=== PATIENT | female | born 1945 | race Caucasian/White ===

== ENCOUNTER 2017-03-30 18:07 | Inpatient (IN) | payer MEDICARE, SELFPAY ==
[2017-03-30 18:14] VITALS: BMI 22.9
[2017-03-30] MEDS ORDERED: Guaifenesin DM 100-10/5 ML UDCUP PO PRN (19:27)
[2017-03-30] MEDS ORDERED: Loperamide HCl 2 MG CAP PO PRN (19:27)
[2017-03-30] MEDS ORDERED: Mometasone/Formoterol 60 PUFF AER INH PRN (20:11)
[2017-03-30] MEDS ORDERED: PROVENTIL INHALER 6.7 G (200 INHALATIONS) INH PRN (20:11)
[2017-03-30] MEDS ORDERED: [UNRECOGNIZED DRUG - OTHER] IV SCH (20:15)
[2017-03-30] MEDS ORDERED: Non-Formulary Item 1 EACH (Vancomycin/0.9 % Sod Chloride [Vancomycin 1 G/100ml-0.9% Nacl] IV SCH (20:15)
[2017-03-30] MEDS ORDERED: SODIUM CHLORIDE 0.9% IV SCH (20:15)
[2017-03-30] MEDS ORDERED: HYDROmorphone 2 MG TAB PO SCH (21:00)
[2017-03-30] MEDS: Spironolactone 25 MG TAB PO SCH (21:08)
[2017-03-30] MEDS: Glimepiride 2 MG TAB PO SCH (21:09)
[2017-03-30] MEDS: Metoprolol Tartrate 50 MG TAB PO SCH (21:09)
[2017-03-30] MEDS: Fish Oil 1,000 MG CAP PO SCH (21:11)
[2017-03-30] MEDS: Sodium Chloride 0.9% 1,000 ML IV SCH (21:24)
[2017-03-31 05:44] LABS: #Eosinphils 0.1 thou/uL (0.0-0.7); #Monocytes 0.4 thou/uL (0.11-0.59); #Neutrophils 3.6 thou/uL (1.40-6.50); %Basophils 0.7 % (0.0-1.0); %Lymphocytes 32.3 % (21.0-51.0); Hemoglobin 9.8 g/dL (12.0-16.0); Mean Corpuscular HGB CONC 30.6 g/dL (32.0-36.0); Mean Corpuscular Hemoglobin 23.7 pg (27.0-31.0); Mean Corpuscular Volume 77.4 fl (81.0-99.0); Mean Platelet Volume 10.5 fL (7.4-10.4); Platelet Count 182 thou/uL (130-400); RBC Distribution Width 15.9 % (11.5-14.5); Red Blood Cell (RBC) Count 4.14 mill/uL (4.20-5.40); White Blood Cell (WBC) Count 6.2 thou/uL (4.8-10.8)
[2017-03-31 05:45] LABS: Anisocytosis MODERATE=16-30 cells (100X) (0-5/hpf); Elliptocytes SLIGHT = 2-5 cells (100X) (0-1/hpf); Hypochromia SLIGHT = 6-15 cells (100X) (0-5/hpf); MDiff Complete? YES; Ovalocytes MODERATE= 6-15 cells (100X) (0-1/hpf); PLT Morphology Comment Appears Adequate; Target Cells SLIGHT = 2-5 cells (100X) (0-1/hpf)
[2017-03-31 05:50] LABS: ALT (SGPT) 72 U/L (8-55); AST (SGOT) 125 U/L (5-34); Albumin 3.3 g/dL (3.4-4.8); Alkaline Phosphatase 265 U/L (40-150); Anion Gap 15 mmol/L (10-20); BUN (Urea Nitrogen) 18 mg/dL (9.8-20.1); Bilirubin, Total 0.4 mg/dL (0.2-1.2); Calc. Creatinine Clearance 45 mL/min (70-130); Calcium 8.8 mg/dL (7.8-10.44); Carbon Dioxide 27 mmol/L (23-31); Chloride 99 mmol/L (98-107); Estimated GFR-MDRD 56; Globulin 2.7 g/dL (2.4-3.5); Glucose 94 mg/dL (83-110); Sodium 137 mmol/L (136-145)
[2017-03-31] MEDS: HYDROmorphone 2 MG TAB PO PRN ×5 (06:37→21:00)
[2017-03-31] MEDS: Sodium Chloride 0.9% 1,000 ML IV SCH ×3 (06:37→17:16)
[2017-03-31 08:16] LABS: Bilirubin Negative (Negative); Blood, Urine Negative (Negative); Clarity Clear (Clear); Glucose, Urine (Dipstick) Negative (Negative); Leukocyte Trace (Negative); Nitrite Negative (Negative); Protein, Urine (Dipstick) Negative (Neg-Trace); Specific Gravity, Urine 1.015 (1.005-1.030); Urobilinogen 0.2 mg/dL (0.2-1.0); pH, Urine 5.5 (5.0-9.0)
[2017-03-31 08:28] LABS: RBC/HPF None Seen HPF (0-3)
[2017-03-31 08:29] LABS: Bacteria/HPF 1+ HPF (None Seen); Other Microscopic Description NO
[2017-03-31] MEDS ORDERED: Lisinopril 10 MG TAB PO SCH (09:00)
[2017-03-31] MEDS: Metoprolol Tartrate 50 MG TAB PO SCH ×3 (09:19→20:59)
[2017-03-31] MEDS: Fish Oil 1,000 MG CAP PO SCH ×3 (09:19→21:00)
[2017-03-31] MEDS: Furosemide 40 MG TAB PO SCH (09:19)
[2017-03-31] MEDS: Potassium Chloride 10 MEQ TAB PO SCH (09:20)
[2017-03-31] MEDS: Spironolactone 25 MG TAB PO SCH ×3 (09:20→21:00)
[2017-03-31] MEDS: Clopidogrel Bisulfate 75 MG TAB PO SCH (09:21)
[2017-03-31] MEDS: Glimepiride 2 MG TAB PO SCH ×2 (09:21→20:59)
[2017-03-31] MEDS: Ondansetron ODT 4 MG TAB PO PRN (17:14)
[2017-03-31] MEDS: Vancomycin HCl 1 GM in Sodium Chloride 0.9% 250 ML 250 ML IVPB SCH (17:15)
[2017-03-31] MEDS ORDERED: Dextrose 5% in Water 1,000 ML IV PRN (18:04)
[2017-03-31] MEDS ORDERED: HumaLOG 300 UNITS/3 ML VIAL SC PRN ×2 (18:04)
[2017-03-31] MEDS ORDERED: Dextrose 50% Abboject 50 ML SYRINGE IVP PRN (18:04)
[2017-04-01] MEDS: Sodium Chloride 0.9% 1,000 ML IV SCH ×4 (00:49→21:39)
[2017-04-01] MEDS: HYDROmorphone 2 MG TAB PO PRN ×3 (04:52→21:37)
[2017-04-01] MEDS: Spironolactone 25 MG TAB PO SCH ×3 (08:01→21:37)
[2017-04-01] MEDS: Fish Oil 1,000 MG CAP PO SCH ×3 (08:01→21:37)
[2017-04-01] MEDS: Glimepiride 2 MG TAB PO SCH ×2 (08:02→21:37)
[2017-04-01] MEDS: Metoprolol Tartrate 50 MG TAB PO SCH ×3 (08:02→21:37)
[2017-04-01] MEDS: Clopidogrel Bisulfate 75 MG TAB PO SCH (08:02)
[2017-04-01] MEDS: Furosemide 40 MG TAB PO SCH (08:02)
[2017-04-01] MEDS: Potassium Chloride 10 MEQ TAB PO SCH (08:02)
[2017-04-01] MEDS: Lisinopril 10 MG TAB PO SCH (08:02)
--- NOTE | 2017-04-01 08:06 | HP ---
DATE OF ADMISSION: 03/30/2017 DATE OF HISTORY AND PHYSICAL: 03/31/2017 HISTORY OF PRESENT ILLNESS: Ms. Benson is a very pleasant 71-year-old white female that unfortunately fell about 3 weeks ago. She had surgical reduction but unfortunately it became infected. She had s ignificant swelling to her leg and the surgical site had to be opened, irrigated, and all the hardwar e removed. The patient tolerated the procedure fairly well, but needs 4-6 weeks of IV vancomycin. Selena Underwood called me and transferred the patient to [facility] for continued IV antibiot ics and nonweightbearing status. PAST MEDICAL HISTORY: Reveals the patient has, 1. Congestive heart failure. 2. Diabetes type 2. 3. Hyperlipidemia. 4. Hypertension. 5. Osteomyelitis. 6. Prior history of malignant tumor of the breast. 7. Coronary arteriosclerosis. 8. Aortic valve stenosis. 9. Open wound to the lower ankle. PAST SURGICAL HISTORY: 1. Aortic valve repair in 2014. 2. Three orthopedic surgeries on the left lower extremity. 3. Two orthopedic surgeries on the right lower extremity. 4. Double mastectomy in 1989. 5. Cholecystectomy in 1959. 6. Right inguinal hernia repair. 7. Percutaneous transluminal balloon angioplasty with insertion of stents in the right coronary tristan ry in [address] Dominguez and Dr. Hanson. FAMILY HISTORY: Reveals the patient's mother had breast cancer. The patient's father had a stroke. The patient's father also had stomach cancer. SOCIAL HISTORY: Reveals the patient has smoked, but quit smoking in 1959. She only smoked 2 years. She denies any alcohol use. She also denies any illicit drug use. She presently lives in [facility] with her . CURRENT MEDICATIONS: Reveal the patient is presently on the followin. Acetaminophen 650 mg p.r.n. 2. Elwood 5 q.4h. p.r.n. 3. Xanax 0.5 q.6 h. p.r.n. anxiety and agitation. 4. Brovana 15 mcg neb q.a.m. 5. Ecotrin 81 mg. 6. Tessalon Perles 100 mg t.i.d. scheduled. 7. Budesonide 0.5 mg for neb at bedtime. 8. Vitamin D 1000 units daily. 9. Plavix 75 mg daily. 10. Diltiazem CD 100 mg daily. 11. Pepcid 20 mg daily. 12. Fluticasone nasal spray scheduled daily. 13. Robitussin-AC 5 mL q.4 h. p.r.n. cough. 14. Avapro 300 mg daily. 15. Levothyroxine 50 mcg daily. 16. Milk of Magnesia p.r.n. constipation. 17. Magnesium oxide 400 mg daily. 18. Zofran 4 mg IV q.6 h. p.r.n. nausea and vomiting. 19. Prednisone 5 mg each morning. 20. Zoloft 25 mg each morning. 21. Normal saline flush p.r.n. ALLERGIES: The patient is noted to be allergic to AMOXICILLIN, BACTRIM, TETRACYCLINE, TYLENOL, DARVO CET-N 100, CODEINE, DEMEROL, DARVON. REVIEW OF SYSTEMS: Revealed that the patient has 10-system reviewed, all negative. PHYSICAL EXAMINATION: GENERAL: This is a well-developed, well-nourished, slightly obese white female lying in bed in no ap parent distress at this time. HEENT: Reveals normocephalic, nontraumatic cranium. Pupils are equally round and reactive. Extraoc ular movements are intact. Nose and throat are somewhat moist and clear. NECK: Supple, without mass, nodes or bruits. The patient is noted be euthyroid. No jugular venous distention is noted. CHEST: Clear to auscultation. No rales, rhonchi or wheezes are heard. HEART: Reveals a regular rate and rhythm without murmurs, gallops or rubs. BACK: Without murmurs or gallops. The patient has a 2/6 systolic ejection murmur. ABDOMEN: Obese, soft, nontender, without organomegaly. Normal bowel sounds are heard in all 4 quadr ants. GENITOURINARY: Deferred. EXTREMITIES: Covered in a dressing, which I have not unwrapped. Patient has had pictures taken, I w ill review those. Patient has no significant rashes. NEUROLOGIC: The patient is oriented to person, place and time. The patient has cranial nerves II-XI I grossly intact. ASSESSMENT: 1. Osteomyelitis requiring vancomycin. 2. Open wound to the lower leg. 3. Diabetes type 2. 4. Hypertension. 5. Coronary artery disease. 6. Aortic valve stenosis. 7. Open wound of lower limb which has a vein traversing across which is a contraindication to the wo und VAC. 8. History of breast cancer in both breasts. PLAN: 1. We will continue the patient's antibiotic at this time. 2. Continue to encourage the patient to follow diabetic carbohydrate controlled diet. 3. Physical therapy and occupational therapy. 4. Stress ulcer prophylaxis. 5. Decubitus precautions. 6. Physical therapy and occupational therapy.
[2017-04-01] MEDS: Ondansetron ODT 4 MG TAB PO PRN (09:00)
--- NOTE | 2017-04-01 09:08 | PRG ---
DATE OF SERVICE: 04/01/2017 DATE OF ADMISSION: 03/30/2017 SUBJECTIVE: Ms. Benson is a very pleasant 71-year-old white female that unfortunately fell 3 weeks ag o. She had fractured ankle and had a surgical reduction. Unfortunately it became infected. Her leg began to swell and the surgical site had to be opened, irrigated, and all the hardware was removed. The patient tolerated that fairly well, but continues on 4-6 weeks of IV vancomycin. Dr. Underwood call me and we transferred the patient to [facility] for continued IV antibiotics and nonw eightbearing status. SUBJECTIVE: The patient states she is doing very well. She had a good breakfast and she is not havi ng a whole lot of pain. She is very happy here at this time. PHYSICAL EXAMINATION: VITAL SIGNS: This morning reveal blood pressure 111/49, pulse 60, respiration 16-17, O2 sat 97%-98%, T-max 98.6. GENERAL: This is a well-developed, well-nourished, slightly obese white female in no apparent distre ss at this time. HEENT: Reveals normocephalic and nontraumatic cranium. Pupils are equally round and reactive. Extr aocular movements are intact. Nose and throat are slightly dry, but clear. NECK: Supple, without masses, nodes or bruits. CHEST: Clear to auscultation. No rales, no rhonchi, no wheezes are heard. No cough is noted. HEART: Reveals a regular rate and rhythm without murmurs, gallops or rubs except for a 2/6 systolic ejection murmur. ABDOMEN: Obese, soft, nontender, without organomegaly. Normal bowel sounds are noted. No rebound o r guarding is noted. GENITOURINARY: Deferred. EXTREMITIES: Reveal that her ankle is completely wrapped and no drainage noted through the dressings . NEUROLOGIC: The patient is oriented to person, place, and time. IMPRESSION: 1. Osteomyelitis requiring vancomycin for 4-6 weeks. 2. Open wound to lower leg. 3. Diabetes type 2. 4. Hypertension. 5. Coronary artery disease. 6. Aortic valvular stenosis. 7. Open wound of the lower extremity. 8. History of breast cancer in both breasts. 9. Generalized weakness. PLAN: 1. Continue vancomycin, we are waiting on vancomycin trough. 2. Continue to follow the patient's sugars with Accu-Cheks a.c. and at bedtime. 3. Stress ulcer prophylaxis. 4. Decubitus precautions. 5. Deep venous thrombosis prophylaxis. 6. Physical therapy and occupational therapy.
[2017-04-01 16:32] LABS: Vancomycin, Trough 20.5 ug/mL
[2017-04-01] MEDS: Vancomycin HCl 1 GM in Sodium Chloride 0.9% 250 ML 250 ML IVPB SCH (17:27)
[2017-04-02] MEDS: Sodium Chloride 0.9% 1,000 ML IV SCH ×3 (02:38→15:53)
[2017-04-02] MEDS: Ondansetron ODT 4 MG TAB PO PRN ×3 (02:42→20:03)
[2017-04-02] MEDS: Furosemide 40 MG TAB PO SCH (08:48)
[2017-04-02] MEDS: Spironolactone 25 MG TAB PO SCH ×4 (08:48→21:46)
[2017-04-02] MEDS: Fish Oil 1,000 MG CAP PO SCH ×3 (08:48→21:45)
[2017-04-02] MEDS: Potassium Chloride 10 MEQ TAB PO SCH (08:48)
[2017-04-02] MEDS: Glimepiride 2 MG TAB PO SCH ×3 (08:48→21:45)
[2017-04-02] MEDS: Clopidogrel Bisulfate 75 MG TAB PO SCH (08:48)
[2017-04-02] MEDS: Metoprolol Tartrate 50 MG TAB PO SCH ×3 (08:49→21:45)
[2017-04-02] MEDS: Lisinopril 10 MG TAB PO SCH (08:49)
--- NOTE | 2017-04-02 10:38 | PRG ---
DATE OF SERVICE: 04/02/2017 SUBJECTIVE: Ms. Benson is a very pleasant 71-year-old white female that fell and had a fractured ankl e. She had a surgical reduction, but unfortunately became infected and began to swell. They had to reenter the surgical site and remove all the hardware. It was opened and irrigated. The patient was then transferred here for a good 4-6 weeks of IV vancomycin. The patient is a patient of Dr. Kj ashford nd he called me personally to get the patient transferred over. States he would like to see the cinthya ent in a couple weeks. She will continue on IV antibiotics and nonweightbearing status. SUBJECTIVE: The patient states she is doing well. She has no significant pain. She is happy to be here. PHYSICAL EXAMINATION: GENERAL: This is a well-developed, well-nourished, pleasant white female in no apparent distress at this time. VITAL SIGNS: Blood pressure is slightly low last night at 90/49, pulse 60-61, respirations 17-20, O2 sat 94%-98%. T-max 98.6. HEENT: Reveals normocephalic, nontraumatic cranium. Pupils are equal and reactive. Extraocular mov ements intact. Nose and throat are slightly dry. NECK: Supple, without masses, nodes or bruits. CHEST: Clear to auscultation. No rales, rhonchi or wheezes are heard. CARDIOVASCULAR: Reveals a regular rate and rhythm without murmurs, gallops or rubs. A 2/6 systolic ejection murmur is noted. ABDOMEN: Soft, nontender, without organomegaly, normal bowel sounds are noted. No rebound or guardi ng is noted. GENITOURINARY: Deferred. EXTREMITIES: Reveal no clubbing, cyanosis or edema. Left extremity reveals a wound VAC in place and working well. NEUROLOGIC: The patient is oriented to person, place, and time. IMPRESSION: 1. Osteomyelitis requiring 4-6 weeks of vancomycin. 2. Open wound to the left leg with wound VAC. 3. Diabetes type 2. 4. Hypertension. 5. Coronary artery disease. 6. Aortic valvular stenosis. 7. Abnormal liver enzymes. 8. Open wound of the lower extremities. 9. History of breast cancer in both breasts. 10. Generalized weakness. PLAN: 1. We will repeat her labs tomorrow, especially her liver enzymes. 2. Her diabetes is doing outstanding with sugars low 112, high of 137. 3. Vancomycin to be continued for 4-6 weeks and to be adjusted by Pharmacy. 4. Stress ulcer prophylaxis. 5. Decubitus precautions. 6. Deep venous thrombosis prophylaxis. 7. Physical therapy and occupational therapy.
[2017-04-02] MEDS: Vancomycin HCl 1 GM in Sodium Chloride 0.9% 250 ML 250 ML IVPB SCH (17:17)
[2017-04-02] MEDS ORDERED: Mag-Al Plus 1200 MG/1200 MG/120 MG/30 ML UDCUP PO PRN (20:24)
[2017-04-02] MEDS ORDERED: Sodium Chloride 0.9% 1,000 ML IV SCH (20:30)
[2017-04-02] MEDS ORDERED: Mag-Al Plus 1200 MG/1200 MG/120 MG/30 ML UDCUP PO SCH (20:30)
[2017-04-02] MEDS ORDERED: Pantoprazole 40 MG VIAL IVP SCH (20:30)
[2017-04-02] MEDS ORDERED: Sodium Chloride 0.9% 500 ML IV SCH (20:30)
[2017-04-02 21:17] LABS: CKMB 0.8 ng/mL (0-6.6); Troponin I 0.018 ng/mL (< 0.028)
[2017-04-03] MEDS: Sodium Chloride 0.9% 1,000 ML IV SCH ×5 (03:48→20:00)
[2017-04-03 06:08] LABS: ALT (SGPT) 21 U/L (8-55); AST (SGOT) 19 U/L (5-34); Albumin 2.9 g/dL (3.4-4.8); Alkaline Phosphatase 126 U/L (40-150); Anion Gap 16 mmol/L (10-20); BUN (Urea Nitrogen) 34 mg/dL (9.8-20.1); Bilirubin, Total 0.2 mg/dL (0.2-1.2); Calc. Creatinine Clearance 10 mL/min (70-130); Calcium 8.2 mg/dL (7.8-10.44); Carbon Dioxide 20 mmol/L (23-31); Chloride 107 mmol/L (98-107); Estimated GFR-MDRD 10; Globulin 2.5 g/dL (2.4-3.5); Glucose 69 mg/dL (83-110); Potassium 4.4 mmol/L (3.5-5.1); Protein, Total 5.4 g/dL (6.0-8.3); Sodium 139 mmol/L (136-145)
[2017-04-03 06:09] LABS: #Lymphocytes 1.2 thou/uL (1.20-3.40); #Monocytes 0.4 thou/uL (0.11-0.59); #Neutrophils 8.1 thou/uL (1.40-6.50); %Basophils 0.4 % (0.0-1.0); %Eosinophils 0.3 % (0.0-10.0); %Lymphocytes 11.9 % (21.0-51.0); %Monocytes 3.7 % (0.0-10.0); %Neutrophils 83.7 % (42.0-75.0); Hypochromia SLIGHT = 6-15 cells (100X) (0-5/hpf); MDiff Complete? YES; Mean Corpuscular HGB CONC 30.3 g/dL (32.0-36.0); Mean Corpuscular Hemoglobin 23.7 pg (27.0-31.0); Mean Corpuscular Volume 78.4 fl (81.0-99.0); Mean Platelet Volume 11.6 fL (7.4-10.4); Microcytosis MODERATE=15-30 cells (100X) (0-5/hpf); Ovalocytes SLIGHT = 2-5 cells (100X) (0-1/hpf); PLT Morphology Comment Appears Adequate; Platelet Count 184 thou/uL (130-400); Poikilocytosis SLIGHT = 6-15 cells (100X) (0-5/hpf); RBC Distribution Width 16.9 % (11.5-14.5); White Blood Cell (WBC) Count 9.7 thou/uL (4.8-10.8)
[2017-04-03] MEDS: Potassium Chloride 10 MEQ TAB PO SCH (08:30)
[2017-04-03] MEDS: Fish Oil 1,000 MG CAP PO SCH ×3 (08:30→20:00)
[2017-04-03] MEDS: HYDROmorphone 2 MG TAB PO PRN (08:30)
[2017-04-03] MEDS: Glimepiride 2 MG TAB PO SCH ×2 (08:31→20:50)
[2017-04-03] MEDS: Lisinopril 10 MG TAB PO SCH (08:32)
[2017-04-03] MEDS: Spironolactone 25 MG TAB PO SCH ×3 (08:33→20:01)
[2017-04-03] MEDS: Clopidogrel Bisulfate 75 MG TAB PO SCH (08:33)
[2017-04-03] MEDS: Metoprolol Tartrate 50 MG TAB PO SCH ×3 (08:33→20:00)
[2017-04-03] MEDS: Furosemide 40 MG TAB PO SCH (08:33)
[2017-04-03] MEDS ORDERED: Sodium Chloride 0.9% 500 ML IVPB SCH (10:30)
[2017-04-03 16:48] LABS: Vancomycin, Trough 40.4 ug/mL
[2017-04-03] MEDS ORDERED: VANCOMYCIN IVPB PRN (16:53)
[2017-04-03] MEDS ORDERED: Vancomycin HCl 1 GM in Sodium Chloride 0.9% 250 ML 250 ML IVPB SCH (17:00)
[2017-04-03] MEDS: Ondansetron ODT 4 MG TAB PO PRN (17:35)
--- NOTE | 2017-04-03 20:01 | PRG ---
DATE OF SERVICE: 04/03/2017. HISTORY OF PRESENT ILLNESS: Ms. Benson is a very pleasant 71-year-old white female that fell and frac tured her ankle. She a surgical reduction done, but unfortunately it became infected. Dr. Underwood had re-entered to the surgical site, removed all the hardware and it was irrigated and she was transferre d to [facility] for 4 6 weeks of IV vancomycin. The patient was started has actually been doi ng very well. The patient states she has no complaints, but over the weekend for some reason, she be came nauseated, had a lot of indigestion from something she ate and stopped drinking. LABORATORY: Laboratory this morning are significantly different from what they were 3 days ago. Her white count 9700 with hemoglobin 9.0, hematocrit 29.3, platelet count 184,000. Her electrolytes rev eal sodium 139, potassium 4.4, chloride 107, carbon dioxide 20 with a BUN of 34, creatinine is 4.18 w hich is significantly increased from her 0.97 on the 12th. Her sugar was 69. Her point of care sugars were a little bit low yesterday afternoon because the pat ient was not eating. We just stopped her insulin. Her C-reactive protein 1.41. Her sed rate is 45, her prealbumin is less than 5.0. This afternoon, vancomycin trough came back to 40.4. Because of her significant change in her renal status, we decreased her Levaquin to 250. We stopped her Voltaren. We stopped her Lasix and we will repeat a base met and CBC tomorrow morning. We also gave her a liter of fluid and encourage her to force fluids. We also discussed with pharmacy that they would continue managing her vancomycin troug h. PHYSICAL EXAMINATION: GENERAL: This is a well-developed, well-nourished, very awake and alert, white female who states she feels much better today. She thinks she can eat and ate most of her breakfast this morning. HEENT: Reveals normocephalic, nontraumatic cranium. Pupils equal, round, and reactive. Extraocular movements are intact. Nose and throat are moist this morning. NECK: Supple, without mass, nodes or bruits. CHEST: Clear to auscultation. No rales or rhonchi, no wheezes or cough is heard. HEART: Reveals a regular rate and rhythm. A 2/6 systolic murmur is noted. ABDOMEN: Soft, nontender, without organomegaly. Normal bowel sounds are noted. No rebound or guard ing is noted. Bowel sounds are noted all 4 quadrants. : Deferred. EXTREMITIES: Reveal no clubbing, cyanosis or edema. Left extremity reveals wound VAC in place and w orking well. NEUROLOGIC: The patient is oriented to person, place, and time and she states she feels much better today. She states she is feeling like she could continue eat well and drink well. IMPRESSION: 1. Osteomyelitis requiring 4 to 6 weeks of vancomycin. 2. Open wound of the left leg with wound VAC. 3. Diabetes type 2. 4. Hypertension. 5. Chronic kidney disease. 6. Acute renal insufficiency. 7. Coronary artery disease. 8. Aortic valvular stenosis. 9. Abnormal liver enzymes. 10. Open wound to the lower extremity. 11. History of breast cancer. 12. Generalized weakness. PLAN: 1. Repeat labs in the morning. 2. Bullous of normal saline has been given 3. We did stop her vancomycin and Pharmacy will dose it. 4. Stopped her Lasix. 5. Stopped her Voltaren. 6. Decrease her Levaquin to 250 daily. 7. Continue physical therapy and occupational therapy.
[2017-04-03] MEDS ORDERED: Dextrose 50% Abboject 50 ML SYRINGE SLOW IVP PRN (21:59)
[2017-04-03] MEDS ORDERED: Dextrose 50% Abboject 50 ML SYRINGE SLOW IVP SCH (22:00)
[2017-04-03] MEDS: Dextrose 5 % And 0.9 % NaCl 1,000 ML IV SCH (22:08)
[2017-04-04] MEDS: Dextrose 5 % And 0.9 % NaCl 1,000 ML IV SCH ×3 (04:50→15:51)
[2017-04-04 06:01] LABS: Anion Gap 10 mmol/L (10-20)
[2017-04-04 06:22] LABS: #Basophils 0.1 thou/uL (0.0-0.2); #Eosinphils 0.1 thou/uL (0.0-0.7); #Lymphocytes 1.9 thou/uL (1.20-3.40); #Monocytes 0.4 thou/uL (0.11-0.59); #Neutrophils 4.6 thou/uL (1.40-6.50); %Basophils 0.7 % (0.0-1.0); %Eosinophils 1.7 % (0.0-10.0); %Lymphocytes 26.5 % (21.0-51.0); %Monocytes 5.3 % (0.0-10.0); %Neutrophils 65.7 % (42.0-75.0); Hemoglobin 7.1 g/dL (12.0-16.0); Hypochromia SLIGHT = 6-15 cells (100X) (0-5/hpf); MDiff Complete? YES; Mean Corpuscular HGB CONC 30.5 g/dL (32.0-36.0); Mean Corpuscular Hemoglobin 23.8 pg (27.0-31.0); Mean Corpuscular Volume 78.1 fl (81.0-99.0); Mean Platelet Volume 11.1 fL (7.4-10.4); Microcytosis MODERATE=15-30 cells (100X) (0-5/hpf); Ovalocytes SLIGHT = 2-5 cells (100X) (0-1/hpf); PLT Morphology Comment Appears Adequate; Platelet Count 136 thou/uL (130-400); Poikilocytosis SLIGHT = 6-15 cells (100X) (0-5/hpf); RBC Distribution Width 16.8 % (11.5-14.5)
[2017-04-04 07:39] LABS: BUN (Urea Nitrogen) 26 mg/dL (9.8-20.1); Calc. Creatinine Clearance 15 mL/min (70-130); Carbon Dioxide 18 mmol/L (23-31); Chloride 119 mmol/L (98-107); Estimated GFR-MDRD 15; Glucose 122 mg/dL (83-110); Potassium 3.5 mmol/L (3.5-5.1); Sodium 143 mmol/L (136-145)
[2017-04-04 07:48] LABS: Calcium 7.8 mg/dL (7.8-10.44)
[2017-04-04] MEDS: Lisinopril 10 MG TAB PO SCH (08:29)
[2017-04-04] MEDS: Spironolactone 25 MG TAB PO SCH ×3 (08:30→21:43)
[2017-04-04] MEDS: Metoprolol Tartrate 50 MG TAB PO SCH ×3 (08:30→21:42)
[2017-04-04] MEDS: Clopidogrel Bisulfate 75 MG TAB PO SCH (08:37)
[2017-04-04] MEDS: Fish Oil 1,000 MG CAP PO SCH ×3 (08:37→21:42)
[2017-04-04] MEDS: Potassium Chloride 10 MEQ TAB PO SCH (08:37)
--- NOTE | 2017-04-04 14:00 | PRG ---
DATE OF SERVICE: 04/04/2017 HISTORY OF PRESENT ILLNESS: Ms. Benson is a very pleasant 71-year-old white female that unfortunately fell and fractured her ankle. She had open reduction internal fixation, but unfortunately became in fected. Dr. Underwood had re-entered the surgical site and removed all the hardware that was irrigated ex tensively. Wound VAC was placed and she was transferred to [facility] for 4-6 weeks of IV vancomycin. The patient has actually been doing very well except about 3 days ago she came out with some type of stomach virus and pretty much stopped eating and drinking. Her creatinine went from 0.97-4.18 yester day. We did give her some IV boluses and IV fluids and this morning, it was 2.98, which is much impr hilary. The patient also had hypoglycemia last night, because she has not been eating and she was taki ng her Amaryl and we stopped that. Her sugars have gotten down in the 60s and this afternoon in the 150s. SUBJECTIVE: The patient states she feels much better today. She is able to eat a little bit, but sh alba is eating about 20%-25% of her normal. OBJECTIVE: VITAL SIGNS: Reveal blood pressure this morning was 121/50, pulse 64-66, respirations 16-18, O2 sat 96%, T-max 98.3. LABORATORY DATA: Today reveals her white count is 7000. She is hemodiluted from 9 down to 7.1 and f rom 29.8 to 23.5. She has had no bloody stools. Her platelet count is 136. She has no abdominal te nderness either. Her electrolytes revealed her sodium is 143 with a potassium of 3.5, chloride 119, carbon dioxide 18. Her BUN is 26, down from 34 and creatinine is 2.98, down from 4.18 yesterday. Her point of care murillo gars reveal she got all the way down to 49, early this morning about 0513. Yesterday evening, she go t down to 50 and 57. She was given 1/2 amps of D50 twice and was started on D5 drip last night with some normal saline. Again, the patient states she is feeling much better and her appetite is coming back and she has no s tomach cramps or pain. PHYSICAL EXAMINATION: GENERAL: This is a well-developed, well-nourished, slightly obese white female, in no apparent distr ess at this time. HEENT: Reveals normocephalic, nontraumatic cranium. Pupils equal, round, and reactive. Extraocular movements intact. Nose and throat are slightly dry, but clear. NECK: Supple, without masses, nodes or bruits. LUNGS: Chest is clear to auscultation. No rales, no rhonchi, no wheezes are noted. No cough is hea rd today. CARDIOVASCULAR: Heart reveals a regular rate and rhythm. A 2/6 systolic murmur is noted, it was unc hanged. ABDOMEN: Soft, nontender. Normal bowel sounds are noted in all 4 quadrants. No rebound or guarding is noted. The patient denies any abdominal pain. GENITOURINARY: Deferred. EXTREMITIES: Reveal no clubbing, cyanosis or edema. The patient's left lower extremity still has a wound VAC attached. NEUROLOGIC: The patient is oriented to person, place, time, and is answering questions appropriately . She states she does feel much better and she is eating and drinking much better. IMPRESSION: 1. Osteomyelitis requiring 4-6 weeks of vancomycin. 2. Acute renal insufficiency secondary to poor oral intake, much improved. 3. Open wound in the left leg with wound VAC. 4. Diabetes type 2, stable. 5. Hypoglycemia, but presently much improved. 6. Hypertension. 7. Chronic kidney disease. 8. Acute renal insufficiency. 9. Coronary artery disease. 10. Aortic valvular stenosis, status post tablet. 11. Abnormal liver enzymes, which are much improved. Her AST has gone from 125 down to 19, and her ALT from 72 down to 21. 12. History of breast cancer. 13. Generalized weakness. PLAN: 1. We will repeat her labs again in the morning. 2. We will decrease her IV down to 75 mL an hour. 3. We encourage her to eat and drink. 4. Pharmacy is dosing her vancomycin. 5. Her Lasix and her Voltaren has been stopped. We will have to watch her closely for congestive he art failure. 6. Her Levaquin has been decreased to 250 daily. 7. We will continue physical therapy and occupational therapy.
[2017-04-04] MEDS: Ibuprofen 200 MG TAB PO PRN ×2 (16:17→21:46)
[2017-04-04] MEDS: HYDROmorphone 2 MG TAB PO PRN ×2 (16:18→21:47)
[2017-04-04 16:29] LABS: Vancomycin, Random 33.6 ug/mL (See Comment)
[2017-04-04] MEDS ORDERED: Vancomycin HCl 500 MG in Sodium Chloride 0.9% 100 ML IVPB SCH (17:00)
[2017-04-05] MEDS: HYDROmorphone 2 MG TAB PO PRN ×3 (04:22→17:32)
[2017-04-05] MEDS: Ibuprofen 200 MG TAB PO PRN (04:23)
[2017-04-05] MEDS: Dextrose 5 % And 0.9 % NaCl 1,000 ML IV SCH (04:25)
[2017-04-05 05:49] LABS: Anion Gap 13 mmol/L (10-20); Globulin 2.4 g/dL (2.4-3.5)
[2017-04-05 05:55] LABS: ALT (SGPT) 13 U/L (8-55); AST (SGOT) 16 U/L (5-34); Albumin 2.8 g/dL (3.4-4.8); Alkaline Phosphatase 92 U/L (40-150); BUN (Urea Nitrogen) 32 mg/dL (9.8-20.1); Bilirubin, Total 0.2 mg/dL (0.2-1.2); Calc. Creatinine Clearance 10 mL/min (70-130); Calcium 7.9 mg/dL (7.8-10.44); Carbon Dioxide 20 mmol/L (23-31); Chloride 112 mmol/L (98-107); Estimated GFR-MDRD 10; Glucose 115 mg/dL (83-110); Potassium 5.7 mmol/L (3.5-5.1); Protein, Total 5.2 g/dL (6.0-8.3); Sodium 139 mmol/L (136-145)
[2017-04-05 05:58] LABS: #Eosinphils 0.2 thou/uL (0.0-0.7); #Lymphocytes 1.7 thou/uL (1.20-3.40); #Monocytes 0.5 thou/uL (0.11-0.59); %Basophils 0.6 % (0.0-1.0); %Eosinophils 2.6 % (0.0-10.0); %Lymphocytes 22.4 % (21.0-51.0); %Monocytes 6.8 % (0.0-10.0); %Neutrophils 67.5 % (42.0-75.0); Hemoglobin 8.2 g/dL (12.0-16.0); Hypochromia MODERATE=16-30 cells (100X) (0-5/hpf); MDiff Complete? YES; Mean Corpuscular HGB CONC 31.2 g/dL (32.0-36.0); Mean Corpuscular Hemoglobin 24.2 pg (27.0-31.0); Mean Corpuscular Volume 77.6 fl (81.0-99.0); Mean Platelet Volume 10.3 fL (7.4-10.4); Microcytosis MODERATE=15-30 cells (100X) (0-5/hpf); Ovalocytes SLIGHT = 2-5 cells (100X) (0-1/hpf); PLT Morphology Comment Appears Adequate; Platelet Count 149 thou/uL (130-400); Poikilocytosis SLIGHT = 6-15 cells (100X) (0-5/hpf); RBC Distribution Width 16.7 % (11.5-14.5); Target Cells SLIGHT = 2-5 cells (100X) (0-1/hpf); White Blood Cell (WBC) Count 7.4 thou/uL (4.8-10.8)
[2017-04-05 07:23] VITALS: TEMP 98.1
[2017-04-05] MEDS: Fish Oil 1,000 MG CAP PO SCH ×2 (08:19→17:28)
[2017-04-05] MEDS: Clopidogrel Bisulfate 75 MG TAB PO SCH (08:19)
[2017-04-05] MEDS ORDERED: HYDROmorphone 2 MG TAB PO SCH (08:30)
[2017-04-05] MEDS: Spironolactone 25 MG TAB PO SCH ×2 (13:50→17:28)
[2017-04-05] MEDS: Potassium Chloride 10 MEQ TAB PO SCH (13:51)
[2017-04-05] MEDS: Metoprolol Tartrate 50 MG TAB PO SCH ×2 (13:51→17:28)
[2017-04-05] MEDS: Lisinopril 10 MG TAB PO SCH (13:51)
[2017-04-05 14:34] LABS: Potassium 5.8 mmol/L (3.5-5.1)
[2017-04-05 15:06] VITALS: BP 201/81
[2017-04-05 16:56] LABS: Vancomycin, Random 27.8 ug/mL (See Comment)
--- NOTE | 2017-04-05 18:55 | RAD ---
PORTABLE AP CHEST X-RAY 04/05/17 HISTORY: Shortness of breath. COMPARISON: Not available. FINDINGS: Right sided PICC line is noted in place with tip overlying the expected location of the SVC. Postsurg ical changes related to CABG are noted. Cardiac silhouette is magnified by projection. There is incre ase in perihilar interstitial densities which could be related to either pulmonary edema or infectiou s process. There is blunting of the left lateral costophrenic angle probably related to small left pl eural effusion. Surgical clips overlie the axillary regions bilaterally. 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 IMPRESSION: 1. Increased interstitial densities bilaterally, some of which could be related to the portable technique of the exam. However, infectious process versus pulmonary edema is also a possibility. 2. Small left pleural effusion. 3. Followup PA and lateral chest x-ray would be helpful for further evaluation. POS: MARIO
--- NOTE | 2017-04-05 23:44 | DIS ---
DISCHARGE SUMMARY TRANSFER NOTE DATE OF ADMISSION: 03/30/2017 DATE OF DISCHARGE: 04/05/2017 Ms. Benson is a very pleasant 71-year-old white female, who fell approximately 3 to 4 weeks ago. She has surgical reduction that became infected. She has significant swelling in her leg and surgical si te had been opened and irrigated. All the hardware was removed and the patient was transferred to [facility] for 4 to 6 weeks of IV vancomycin. The patient is on nonweightbearing statu s. While in the hospital, the patient had some significant nausea with occasional vomiting. She has pre tty much stopped eating and drinking. Her creatinine went from 0.98 to 4.13 I believe. The patient was given some IV fluids. Her medications were renally decreased and her creatinine went from 4.18 u p to 2.93 yesterday. The patient became hypoglycemic yesterday from her Amaryl and that was stopped. She was given half amp of D50 twice and started on D5 normal saline drip and did very well. The dr ip was decreased to 75 mL hour yesterday since the patient began to eat and drink better. The patien t states she was feeling better yesterday, but today she states she is feeling worse and she has not been eating and drinking and actually refused her medicines this morning. I have been told that she has refused several of her medicines over the last 2 to 3 days. Her labs came back with a creatinine increased to 4.30 this morning. Around 11:00, the patient seemed to have a panic attack because she has been off her Zoloft. At that time, she also was somewhat short of breath. I have evaluated her this afternoon and the patient seems somewhat dyspneic, but no rales or rhonchi are heard. Chest x- ray was done, which reveals some significant fluid overload. The patient is not able to take signifi cant Lasix because of her renal insufficiency. I did call Dr. Gibbs, numerical control tool programmer and discussed the case with him and we decided to transfer the cinthya ent back to [facility], so that he could consult with the hospitalist to help thi s patient improve. Her validation manager, Dr. Ike Dominguez is also at [facility] and h surgical orthopedist is also there. I did go talk with the patient twice about what our game plan s were. We contacted [facility] for transfer and their recommendation was to sen d the patient to our ER and then to their ER since this was a swing bed patient, that has been alfredo joaquin. LABORATORY DATA: Laboratories today revealed white count 3400 with a hemoglobin 8.2, hematocrit 26.3 , and platelet count 149,000. The patient's sodium is 139, potassium elevated at 5.8, creatinine is 112, carbon dioxide is 24 with a BUN of 32 and creatinine of 4.30. Her sugars today are actually sta ble at fasting this morning 124, before lunch 115, before about 4:00 is 135 and at 1500 hours is 138. The patient has had a C-reactive protein 2 days ago, which is 1.41 and her prealbumin is less than 5.0. BNP was done also this morning since she has a cardiac history of AVR in the past and it is 330 0, but I did not have any previous ones compare to. Vancomycin level this morning was 27.8. Her van comycin did go from 04/01/2017 from 20.5 to on 04/03/2017 to 40.4. Her vancomycin has been held sinc e then. PHYSICAL EXAMINATION: GENERAL: This is a well-developed, well-nourished, slightly anxious, slightly dyspneic, short white female without any significant complaints of abdominal pain, although she still states she has some n ausea and just does not feel like eating. HEENT: Reveals normocephalic, nontraumatic cranium. Pupils are equally round and reactive. Extraoc ular movements are intact. Nose and throat are clear, but dry. NECK: Supple, without masses, nodes or bruits. No jugular venous distention is noted at this time. CHEST: Reveals distant breath sounds. No rales are heard and no rhonchi are heard. The patient has no significant cough. HEART: Reveals regular rate and rhythm. ABDOMEN: Obese, soft, nontender. Normal bowel sounds are noted. GENITOURINARY: Deferred. EXTREMITIES: Reveals no clubbing, cyanosis or edema. ASSESSMENT: 1. Acute renal insufficiency. 2. Volume overload. 3. Diabetes. 4. History of congestive heart failure in the past, followed by Dr. Ike Dominguez. 5. Hypertension. 6. Hyperlipidemia. 7. Osteomyelitis, presently on vancomycin per Dr. Underwood. 8. History of malignant tumor of the breast. 9. Coronary artery disease. 10. Aortic valvular stenosis, status post aortic valve repair in 2015. 11. Percutaneous transluminal balloon angioplasty with stents in the right coronary artery [place] [address] Dominguez and Dr. Woo. PLAN: 1. The patient has been discussed with Dr. Gibbs, who agrees that the patient needs to be transferred to a higher level of service. 2. I have discussed the patient with Dr. Kumar, who is the ER physician. Apparently, the patient n eeds to go to our ER and then be transferred to the ER at [facility]. 3. The patient's transfer, should also be seen by Dr. Gibbs in consultation. I have discussed with antalia burton and he said he would see the patient in the ER if they will call him. Also, the patient may need to be seen by Dr. Dominguez who was systems security consultant for that group.
== END 2017-04-05 18:30 | disposition short-term general hospital (02) | DRG 949 ==
LOC: NAV ACUTE 18:07
PROVIDERS: ADMIT Family Medicine; ATTEND Family Medicine
DX: T84.629D Infection and inflammatory reaction due to internal fixation device of unspecified bone of leg, subsequent encounter (principal); M86.9 Osteomyelitis, unspecified; E11.22 Type 2 diabetes mellitus with diabetic chronic kidney disease; E11.649 Type 2 diabetes mellitus with hypoglycemia without coma; I13.0 Hypertensive heart and chronic kidney disease with heart failure and stage 1 through stage 4 chronic kidney disease, or unspecified chronic kidney disease; E11.69 Type 2 diabetes mellitus with other specified complication; E78.5 Hyperlipidemia, unspecified; Z85.3 Personal history of malignant neoplasm of breast; I25.10 Atherosclerotic heart disease of native coronary artery without angina pectoris; Z95.2 Presence of prosthetic heart valve; Z90.13 Acquired absence of bilateral breasts and nipples; Z95.5 Presence of coronary angioplasty implant and graft; Z87.891 Personal history of nicotine dependence; Z79.01 Long term (current) use of anticoagulants; Z79.52 Long term (current) use of systemic steroids; Z88.1 Allergy status to other antibiotic agents; Z88.5 Allergy status to narcotic agent; S81.802A Unspecified open wound, left lower leg, initial encounter; Z95.828 Presence of other vascular implants and grafts; N18.9 Chronic kidney disease, unspecified; I50.9 Heart failure, unspecified
CPT/HCPCS: 36415; 36416; 71045; 80048; 80053; 80202; 81001; 82553; 83880; 84134; 84484; 85025; 85652; 86140; 87070; 87205; A4216; C1751; C9113; G8978-GP-CL; G8979-GP-CJ; J3370; J7042; J7050; Q0162

== ENCOUNTER 2017-04-05 18:17 | Emergency (ER) | payer MEDICARE | END 2017-04-05 20:51 | disposition short-term general hospital (02) | LOC: NAV ERS 18:17 | DX: J81.0 Acute pulmonary edema (principal); N17.9 Acute kidney failure, unspecified; T81.4XXA Infection following a procedure, initial encounter; I25.10 Atherosclerotic heart disease of native coronary artery without angina pectoris; E11.9 Type 2 diabetes mellitus without complications; E78.5 Hyperlipidemia, unspecified; I10 Essential (primary) hypertension; Z85.3 Personal history of malignant neoplasm of breast; Z87.891 Personal history of nicotine dependence; Z79.899 Other long term (current) drug therapy; Z79.82 Long term (current) use of aspirin | CPT/HCPCS: 94760 ==

== ENCOUNTER 2017-04-13 12:39 | Inpatient (IN) | payer MEDICARE ==
[2017-04-13] MEDS ORDERED: FLU VACC QS2017-18 36 mo. & older 0.5 ML SYRINGE IM ONE (14:15)
[2017-04-13] MEDS ORDERED: Milk Of Magnesia 30 ML UDCUP PO PRN (15:45)
[2017-04-13] MEDS: Glimepiride 2 MG TAB PO SCH (16:49)
[2017-04-13] MEDS ORDERED: traMADol HCl 50 MG TAB PO PRN (16:54)
[2017-04-13] MEDS ORDERED: Acetaminophen 500 MG TAB PO PRN (16:56)
[2017-04-13] MEDS ORDERED: Glimepiride 2 MG TAB PO SCH (17:00)
[2017-04-13] MEDS: Mometasone/Formoterol 60 PUFF AER INH SCH (18:01)
[2017-04-13 18:59] LABS: Bilirubin Negative (Negative); Blood, Urine Large (Negative); Clarity Clear (Clear); Glucose, Urine (Dipstick) Negative (Negative); Leukocyte Negative (Negative); Nitrite Negative (Negative); Protein, Urine (Dipstick) 30 mg/dL (Neg-Trace); Specific Gravity, Urine 1.015 (1.005-1.030); Urobilinogen 0.2 mg/dL (0.2-1.0)
[2017-04-13 19:00] LABS: Bacteria/HPF Rare-Few HPF (None Seen); RBC/HPF 21-50 HPF (0-3)
[2017-04-13] MEDS ORDERED: Non-Formulary Item 1 EACH (Icosapent Ethyl [Vascepa] 1 GM) PO SCH (21:00)
[2017-04-13] MEDS ORDERED: HumaLOG 300 UNITS/3 ML VIAL SC PRN (21:39)
[2017-04-13] MEDS ORDERED: Dextrose 5% in Water 1,000 ML IV PRN (21:39)
[2017-04-13] MEDS ORDERED: Dextrose 50% Abboject 50 ML SYRINGE IVP PRN (21:39)
[2017-04-13] MEDS: Spironolactone 25 MG TAB PO SCH (21:59)
[2017-04-13] MEDS: HYDROmorphone 2 MG TAB PO PRN (21:59)
[2017-04-13] MEDS: Metoprolol Tartrate 50 MG TAB PO SCH (21:59)
--- NOTE | 2017-04-14 02:34 | HP ---
DATE OF ADMISSION: 04/13/2017 HISTORY OF PRESENT ILLNESS: Mrs. Benson is a very pleasant 71-year-old white female that fell about 4 -5 weeks ago. She has surgical reduction but unfortunately became infected. She has significant swe lling to her legs at surgical site and had to be opened and irrigated by Dr. Underwood. He did remove the hardware. Patient tolerated the procedure but needed several weeks of IV antibiotics and therefore she was transferred to [facility] for physical therapy and occupational therapy. The patient did very well, but developed some congestive heart failure, most likely from the vancomycin, so therefore the patient was transferred back to [facility] for stabilization an d treatment of her acute renal insufficiency. She eventually stabilized and transferred back here fo r continued physical therapy and occupational therapy. PAST MEDICAL HISTORY: 1. Systolic and diastolic congestive heart failure. 2. Diabetes type 2. 3. Acute on chronic renal insufficiency. 4. Hypertension. 5. Hyperlipidemia. 6. Osteomyelitis. 7. Coronary artery atherosclerosis. 8. Aortic valve stenosis. 9. Open wound to the lower ankle, supposedly a wound VAC is arriving tomorrow. 10. Prior history of malignant breast cancer. PAST SURGICAL HISTORY: 1. Aortic valve repair in 2014. 2. Three orthopedic surgeries in the left lower ankle. 3. Orthopedic surgeries on the right lower ankle. 4. Double mastectomies in 1989. 5. Cholecystectomy in 1959. 6. Right inguinal hernia repair. 7. PTCA with stents in the right coronary artery [place] [address] and Dr[address] Woo. FAMILY HISTORY: Reveals the patient's mother had breast cancer. The patient's father had a stroke. The patient's father also had stomach cancer. SOCIAL HISTORY: Reveals the patient quit smoking in 1959, but only smoked about 2 years. She denies any alcohol use, also denies any illicit drug use. She presently lives in [place] in [facility]. PRESENT MEDICATIONS: Reveal the patient is on the following which include aspirin 81 mg a day, Plavi x 75 mg a day, Voltaren 75 mg t.i.d., fish oil 1000 mg a day, Lasix 20 mg once a day, Amaryl 4 mg b.i .d., Dilaudid 2 mg p.o. q.3 hours p.r.n. severe pain, lisinopril 10 mg daily, Milk of Magnesia 30 mg p.r.n., Lopressor 50 mg t.i.d., Dulera 1 puff inhaled b.i.d., Zofran p.r.n., Klor-Con 10 every day, Z oloft 50 mg a day, spironolactone 25 mg 3 times a day. It is noted that the patient is not on Voltar en anymore, it was stopped before she came back over. ALLERGIES: The patient is allergic to AMOXICILLIN, BACTRIM, TETRACYCLINE, TYLENOL, DARVOCET, CODEINE , DEMEROL, DARVON, ACETAMINOPHEN, SULFAMETHOXAZOLE, TETRACYCLINE. REVIEW OF SYSTEMS: The patient has 10 systems reviewed and all negative. PHYSICAL EXAMINATION: GENERAL: Reveals a well-developed, well-nourished, very pleasant, alert and oriented x3 white female in no apparent distress at this time. HEENT: Reveals normocephalic, nontraumatic cranium. Pupils are equally round and reactive. Extraoc ular movements are intact. Nose and throat are dry tonight. NECK: Supple, without mass, nodes or bruits. No jugular venous distention is noted. The patient is noted to be euthyroid. LUNGS: Chest is clear to auscultation. No rales, rhonchi, no wheezes and no cough is heard. HEART: Reveals a regular rate and rhythm without murmurs, gallops or rubs. Patient does have a 2/6 systolic ejection murmur. ABDOMEN: Obese, slightly soft, nontender, without organomegaly, normal bowel sounds are noted in all 4 quadrants. No rebound or guarding is noted. : Deferred. EXTREMITIES: Reveal no clubbing, cyanosis or edema. The patient's left leg is wrapped and is suppos ed to have a wound VAC placed tomorrow. NEUROLOGIC: Patient is oriented x3 and alert. ASSESSMENT: 1. Osteomyelitis resolved. No more vancomycin. 2. Open wound of the lower leg requires a wound VAC. 3. Diabetes type 2. 4. Hypertension. 5. Coronary artery disease. 6. Aortic valve stenosis. 7. Open wound of the lower limb. 8. History of breast cancer, both breasts. PLAN: 1. Continue wound VAC. 2. Continue present medications. 3. Encourage the patient to be up and about. 4. Physical therapy and occupational therapy. 5. Stress ulcer prophylaxis. 6. Decubitus precautions. 7. Physical therapy and occupational therapy.
[2017-04-14] MEDS: Mometasone/Formoterol 60 PUFF AER INH SCH ×2 (05:32→17:59)
[2017-04-14 05:43] LABS: ALT (SGPT) 14 U/L (8-55); AST (SGOT) 20 U/L (5-34); Albumin 3.5 g/dL (3.4-4.8); Alkaline Phosphatase 86 U/L (40-150); Anion Gap 17 mmol/L (10-20); BUN (Urea Nitrogen) 28 mg/dL (9.8-20.1); Bilirubin, Total 0.2 mg/dL (0.2-1.2); Calc. Creatinine Clearance 14 mL/min (70-130); Calcium 9.5 mg/dL (7.8-10.44); Carbon Dioxide 28 mmol/L (23-31); Chloride 98 mmol/L (98-107); Estimated GFR-MDRD 16; Globulin 3.2 g/dL (2.4-3.5); Glucose 97 mg/dL (83-110); Potassium 4.7 mmol/L (3.5-5.1); Protein, Total 6.7 g/dL (6.0-8.3); Sodium 138 mmol/L (136-145)
[2017-04-14 06:05] LABS: #Basophils 0.1 thou/uL (0.0-0.2); #Eosinphils 0.2 thou/uL (0.0-0.7); #Lymphocytes 2.3 thou/uL (1.20-3.40); #Monocytes 0.5 thou/uL (0.11-0.59); #Neutrophils 3.9 thou/uL (1.40-6.50); %Basophils 0.9 % (0.0-1.0); %Eosinophils 3.1 % (0.0-10.0); %Monocytes 7.4 % (0.0-10.0); %Neutrophils 55.6 % (42.0-75.0); Hemoglobin 8.8 g/dL (12.0-16.0); MDiff Complete? YES; Mean Corpuscular HGB CONC 31.8 g/dL (32.0-36.0); Mean Corpuscular Volume 75.5 fl (81.0-99.0); Microcytosis MODERATE=15-30 cells (100X) (0-5/hpf); Ovalocytes SLIGHT = 2-5 cells (100X) (0-1/hpf); PLT Morphology Comment Appears Adequate; Platelet Count 302 thou/uL (130-400); Poikilocytosis SLIGHT = 6-15 cells (100X) (0-5/hpf); RBC Distribution Width 15.8 % (11.5-14.5); Red Blood Cell (RBC) Count 3.67 mill/uL (4.20-5.40); White Blood Cell (WBC) Count 7.1 thou/uL (4.8-10.8)
[2017-04-14] MEDS: Fish Oil 1,000 MG CAP PO SCH (08:36)
[2017-04-14] MEDS: Glimepiride 2 MG TAB PO SCH ×2 (08:36→18:00)
[2017-04-14] MEDS: Metoprolol Tartrate 50 MG TAB PO SCH ×3 (08:37→20:32)
[2017-04-14] MEDS: Lisinopril 10 MG TAB PO SCH (08:37)
[2017-04-14] MEDS: Clopidogrel Bisulfate 75 MG TAB PO SCH (08:37)
[2017-04-14] MEDS: Potassium Chloride 10 MEQ TAB PO SCH (08:37)
[2017-04-14] MEDS: Furosemide 20 MG TAB PO SCH (08:37)
[2017-04-14] MEDS: Spironolactone 25 MG TAB PO SCH ×3 (08:38→20:32)
[2017-04-14] MEDS ORDERED: Icosapent Ethyl [Vascepa] 1 GM PO SCH (09:00)
[2017-04-14] MEDS ORDERED: Non-Formulary Item 1 EACH (Icosapent Ethyl [Vascepa] 1 GM) PO SCH (09:00)
[2017-04-14] MEDS: HYDROmorphone 2 MG TAB PO PRN (20:32)
--- NOTE | 2017-04-15 02:17 | PRG ---
DATE OF SERVICE: 04/14/2017. Ms. Benson is a pleasant 71-year-old white female that fell 4 or 5 weeks ago with a surgical fracture. Unfortunately, it became infected and Dr. Underwood had to remove the hardware and wash it out. She fletcher erated the procedure very well, but needed several weeks of antibiotics and was transferred here to [facility] for recuperation and PT and OT. Unfortunately, the patient developed some congestive heart failure and acute renal insufficiency, had to be transferred back to [facility] for stabilization and treatment. She eventually did well over there after about 6-7 days and has been transferred back to [facility]. SUBJECTIVE: The patient states she is doing well. She states her kidneys are well. She states she is watching what she is eating and trying to lose some weight. She has no complaints and states she is doing well. OBJECTIVE: VITAL SIGNS: Blood pressure 134/57, pulse 60-61, respirations 18-20, O2 sat 96%-97% on room air, T-m ax 97.1. GENERAL: On physical exam, this is a well-developed, well-nourished, very pleasant, slightly obese w toyin female in no apparent distress at this time. HEENT: Reveals normocephalic, nontraumatic cranium. Pupils are equally round and reactive. Extraoc ular movements intact. Nose and throat are slightly dry. NECK: Supple without masses, nodes, or bruits. CHEST: Clear to auscultation. No rales, rhonchi, wheezes, or cough is heard. HEART: Reveals a regular rate and rhythm. The patient does have a 2/6 systolic ejection murmur. ABDOMEN: Obese, soft, nontender without organomegaly. Normal bowel sounds are noted. No rebound or guarding is noted. GENITOURINARY: Deferred. EXTREMITIES: Reveal left leg continues to be wrapped and supposed to get a wound VAC today. NEUROLOGIC: The patient is oriented x3 and very alert. ASSESSMENT: 1. Osteomyelitis, resolved. The patient's vancomycin was stopped. It was stopped [facility] at the [facility]. 2. Open wound of the lower leg. Requires wound VAC. 3. Diabetes type 2, stable. 4. Hypertension. 5. Coronary artery disease. 6. Aortic valve stenosis. 7. Open wound of the lower limb. 8. History of breast cancer, both breasts. PLAN: 1. Apply wound VAC, when advised. 2. Continue present meds. 3. Physical therapy and occupational therapy. 4. Stress ulcer prophylaxis. 5. Decubitus precautions. 6. DVT precautions.
[2017-04-15] MEDS ORDERED: Sodium Chloride 0.9% 10 ML ONE (05:46)
[2017-04-15] MEDS: Mometasone/Formoterol 60 PUFF AER INH SCH ×2 (05:54→18:33)
[2017-04-15 06:14] LABS: ALT (SGPT) 14 U/L (8-55); AST (SGOT) 20 U/L (5-34); Albumin 3.2 g/dL (3.4-4.8); Alkaline Phosphatase 72 U/L (40-150); Anion Gap 16 mmol/L (10-20); BUN (Urea Nitrogen) 30 mg/dL (9.8-20.1); Bilirubin, Total 0.2 mg/dL (0.2-1.2); Calc. Creatinine Clearance 14 mL/min (70-130); Carbon Dioxide 29 mmol/L (23-31); Chloride 100 mmol/L (98-107); Estimated GFR-MDRD 15; Globulin 2.7 g/dL (2.4-3.5); Glucose 93 mg/dL (83-110); Potassium 4.7 mmol/L (3.5-5.1); Protein, Total 5.9 g/dL (6.0-8.3); Sodium 140 mmol/L (136-145)
[2017-04-15 06:29] LABS: #Eosinphils 0.2 thou/uL (0.0-0.7); #Lymphocytes 2.1 thou/uL (1.20-3.40); #Monocytes 0.6 thou/uL (0.11-0.59); #Neutrophils 3.3 thou/uL (1.40-6.50); %Basophils 0.7 % (0.0-1.0); %Eosinophils 3.1 % (0.0-10.0); %Monocytes 9.3 % (0.0-10.0); Hemoglobin 8.6 g/dL (12.0-16.0); Hypochromia MODERATE=16-30 cells (100X) (0-5/hpf); MDiff Complete? YES; Mean Corpuscular HGB CONC 29.9 g/dL (32.0-36.0); Mean Corpuscular Hemoglobin 22.6 pg (27.0-31.0); Mean Corpuscular Volume 75.6 fl (81.0-99.0); Mean Platelet Volume 8.3 fL (7.4-10.4); Microcytosis MODERATE=15-30 cells (100X) (0-5/hpf); Ovalocytes SLIGHT = 2-5 cells (100X) (0-1/hpf); PLT Morphology Comment Appears Adequate; Platelet Count 274 thou/uL (130-400); Poikilocytosis SLIGHT = 6-15 cells (100X) (0-5/hpf); Red Blood Cell (RBC) Count 3.78 mill/uL (4.20-5.40); White Blood Cell (WBC) Count 6.3 thou/uL (4.8-10.8)
[2017-04-15] MEDS: Potassium Chloride 10 MEQ TAB PO SCH (08:24)
[2017-04-15] MEDS: Spironolactone 25 MG TAB PO SCH ×3 (08:24→20:49)
[2017-04-15] MEDS: Furosemide 20 MG TAB PO SCH (08:24)
[2017-04-15] MEDS: Lisinopril 10 MG TAB PO SCH (08:24)
[2017-04-15] MEDS: Glimepiride 2 MG TAB PO SCH ×2 (08:24→17:11)
[2017-04-15] MEDS: Metoprolol Tartrate 50 MG TAB PO SCH ×3 (08:24→20:49)
[2017-04-15] MEDS: Clopidogrel Bisulfate 75 MG TAB PO SCH (08:25)
[2017-04-15] MEDS: Fish Oil 1,000 MG CAP PO SCH (08:25)
[2017-04-15] MEDS: Ondansetron ODT 4 MG TAB PO PRN (10:48)
[2017-04-15] MEDS: HYDROmorphone 2 MG TAB PO PRN ×2 (11:03→20:49)
[2017-04-15] MEDS ORDERED: Zinc Oxide 16% Ointment 60 gm Tube TOP PRN (14:18)
--- NOTE | 2017-04-15 16:03 | PRG ---
DATE OF SERVICE: 04/15/2017 SUBJECTIVE: Ms. Benson is doing well. Denies any complaints, resting comfortably, tolerating her med ications and her diet. She states that her blood sugar seems to drop in between meals and she needs some mid meal snack. I advised her to just take the Glucerna in between meals. No family at bedside . No other concerns or questions. OBJECTIVE: VITAL SIGNS: She is afebrile, heart rate 61, respirations 16, oxygen saturation 97%, and blood press ure 108/54. CARDIOVASCULAR SYSTEM: S1, S2 plus. RESPIRATORY SYSTEM: Normal vesicular breath sounds. ABDOMEN: Soft, nontender, bowel sounds heard in all quadrants. EXTREMITIES: Without cyanosis or clubbing. PICC line in the right arm. LABORATORY DATA: Sodium 140, potassium 4.7, BUN and creatinine 30 and 2.98. Blood sugars are 164, 1 83, 92 and 176. BNP is 850, white count of 6.6, hemoglobin and hematocrit is 8.6 and 28.6. IMPRESSION: 1. Chronic systolic and diastolic congestive heart failure, improving. 2. Renal insufficiency, likely acute on chronic. 3. Diabetes mellitus type 2. 4. Hypertension. 5. Dyslipidemia. 6. Coronary artery disease. 7. History of osteomyelitis and open wound to her ankle. PLAN: 1. Continue current medications. 2. 1800 calorie Heart healthy ADA diet. 3. Accu-Cheks with sliding scale coverage. 4. Deep venous thrombosis and stress ulcer prophylaxis. 5. Decubitus precautions. 6. Wound VAC. 7. Physical therapy. 8. Routine laboratory values. 9. Discussed with patient in detail and all questions answered.
[2017-04-16] MEDS: Mometasone/Formoterol 60 PUFF AER INH SCH ×2 (05:29→18:10)
[2017-04-16] MEDS: Glimepiride 2 MG TAB PO SCH ×2 (08:26→17:10)
[2017-04-16] MEDS: Spironolactone 25 MG TAB PO SCH ×3 (08:26→20:19)
[2017-04-16] MEDS: Potassium Chloride 10 MEQ TAB PO SCH (08:27)
[2017-04-16] MEDS: Clopidogrel Bisulfate 75 MG TAB PO SCH (08:27)
[2017-04-16] MEDS: Metoprolol Tartrate 50 MG TAB PO SCH ×3 (08:27→20:18)
[2017-04-16] MEDS: Lisinopril 10 MG TAB PO SCH (08:27)
[2017-04-16] MEDS: Fish Oil 1,000 MG CAP PO SCH (08:27)
[2017-04-16] MEDS: Furosemide 20 MG TAB PO SCH (08:27)
--- NOTE | 2017-04-16 11:07 | PRG ---
DATE OF SERVICE: 04/16/2017 SUBJECTIVE: Ms. Benson is doing well. Denies any complaints. She states she just woke up, still hav ing occasional stomach cramping. Denies any nausea, vomiting, or diarrhea. OBJECTIVE: VITAL SIGNS: She is afebrile, heart rate 64, respirations 18, oxygen saturation 95%, and blood press ure 104/48. CARDIOVASCULAR SYSTEM: S1, S2 plus. RESPIRATORY SYSTEM: Normal vesicular breath sounds. ABDOMEN: Soft, nontender, bowel sounds heard in all quadrants. EXTREMITIES: Without cyanosis or clubbing. Wound VAC in place. CENTRAL NERVOUS SYSTEM: Generalized weakness. IMPRESSION: 1. Improving chronic systolic and diastolic congestive heart failure. 2. Acute on chronic renal insufficiency, stable. 3. Diabetes mellitus type 2. 4. Hypertension. 5. Dyslipidemia. 6. Coronary artery disease. 7. History of osteomyelitis and open wound to her ankle requiring wound VAC placement. PLAN: 1. Continue current medications. 2. Monitor renal function. 3. A 1800 calorie heart healthy diet. 4. DVT and sepsis prophylaxis. 5. Decubitus precautions. 6. Wound VAC. 7. Recheck renal function in the morning. 8. Dr. Sanchez back tonight. Discussed with patient in detail and all questions answered.
[2017-04-16] MEDS: Famotidine 20 MG TAB PO SCH (20:18)
[2017-04-16] MEDS: HYDROmorphone 2 MG TAB PO PRN (21:11)
[2017-04-17] MEDS: Mometasone/Formoterol 60 PUFF AER INH SCH ×2 (05:34→17:35)
[2017-04-17 05:55] LABS: Anion Gap 16 mmol/L (10-20); BUN (Urea Nitrogen) 43 mg/dL (9.8-20.1); Calc. Creatinine Clearance 11 mL/min (70-130); Calcium 8.9 mg/dL (7.8-10.44); Carbon Dioxide 27 mmol/L (23-31); Chloride 101 mmol/L (98-107); Estimated GFR-MDRD 12; Potassium 5.4 mmol/L (3.5-5.1); Sodium 139 mmol/L (136-145)
[2017-04-17 06:02] LABS: Glucose 45 mg/dL (83-110)
[2017-04-17 06:09] LABS: #Basophils 0.1 thou/uL (0.0-0.2); #Eosinphils 0.2 thou/uL (0.0-0.7); #Lymphocytes 3.1 thou/uL (1.20-3.40); #Monocytes 0.7 thou/uL (0.11-0.59); #Neutrophils 8.5 thou/uL (1.40-6.50); %Basophils 0.6 % (0.0-1.0); %Eosinophils 1.5 % (0.0-10.0); %Lymphocytes 24.4 % (21.0-51.0); %Monocytes 5.6 % (0.0-10.0); Hemoglobin 8.8 g/dL (12.0-16.0); Hypochromia MODERATE=16-30 cells (100X) (0-5/hpf); MDiff Complete? YES; Mean Corpuscular HGB CONC 30.6 g/dL (32.0-36.0); Mean Corpuscular Hemoglobin 23.2 pg (27.0-31.0); Mean Corpuscular Volume 75.6 fl (81.0-99.0); Mean Platelet Volume 8.9 fL (7.4-10.4); Microcytosis MODERATE=15-30 cells (100X) (0-5/hpf); Ovalocytes SLIGHT = 2-5 cells (100X) (0-1/hpf); PLT Morphology Comment Appears Adequate; Platelet Count 274 thou/uL (130-400); Poikilocytosis SLIGHT = 6-15 cells (100X) (0-5/hpf); RBC Distribution Width 16.1 % (11.5-14.5); Red Blood Cell (RBC) Count 3.78 mill/uL (4.20-5.40); Target Cells SLIGHT = 2-5 cells (100X) (0-1/hpf); White Blood Cell (WBC) Count 12.5 thou/uL (4.8-10.8)
[2017-04-17] MEDS: Lisinopril 10 MG TAB PO SCH (09:07)
[2017-04-17] MEDS: Furosemide 20 MG TAB PO SCH (09:07)
[2017-04-17] MEDS: Metoprolol Tartrate 50 MG TAB PO SCH ×3 (09:08→21:07)
[2017-04-17] MEDS: Spironolactone 25 MG TAB PO SCH ×3 (09:09→21:07)
[2017-04-17] MEDS: Famotidine 20 MG TAB PO SCH ×2 (09:11→21:07)
[2017-04-17] MEDS: Clopidogrel Bisulfate 75 MG TAB PO SCH (09:11)
[2017-04-17] MEDS: Fish Oil 1,000 MG CAP PO SCH ×2 (09:11→09:13)
[2017-04-17] MEDS: Potassium Chloride 10 MEQ TAB PO SCH (09:11)
--- NOTE | 2017-04-17 10:34 | PRG ---
DATE OF SERVICE: 04/17/2017 DATE OF ADMISSION: 04/17/2017 HISTORY OF PRESENT ILLNESS: Ms. Benson is a 71-year-old white female that fractured her left ankle. She had surgical correction done by Dr. Underwood, but unfortunately became infected and had to be all rem hilary. She was transferred to [facility] from PT, OT, wound care and wound VAC. Unfo rtunately, the patient developed hypoglycemia from her Amaryl, congestive heart failure from vancomyc in, and acute renal insufficiency. She was transferred to [facility] for [facility] and transferred back. Last week after she arrived back, it was noted that her creatinine stil l remains elevated at 2.91 which was the last I saw her. Dr. Suarez saw her over the weekend and noted that her creatinine on Monday morning was 2.98. No creatinines were done yesterday and t his morning on my arrival, her creatinine was 3.84. She is not in congestive heart failure, but her Amaryl has given her again a low blood sugar this morning, so we have stopped that again. She has be en restarted when she went back to [facility]. Patient this morning is stable. She has an appointment for an echocardiogram this morning with Dr. Chata mendez's office. I will call Dr. Dominguez and let him know what kind was going on. The patient states she feels okay, but has no complaints. Her blood pressure is little low, it is 96 systolic this morning. She is going to see Dr. Dominguez and have an echocardiogram this morning. We gave her a shot of glucagon and her sugars were in 170s at this time. PHYSICAL EXAMINATION: VITAL SIGNS: Reveals blood pressure 97/39, last blood pressure an hour and half later was 122/44, pu lse 71-64, respirations 18-20, O2 saturation 95%-97%, T-max 97.6. GENERAL: This is a well-developed, well-nourished, slightly obese white female in no apparent distre ss at this time. HEENT: Reveals normocephalic, nontraumatic cranium. Pupils are equally round and reactive. Extraoc ular movements are intact. Nose and throat are slightly dry. NECK: Supple, without masses, nodes or bruits. CHEST: Clear to auscultation. No rales, rhonchi, wheezes or cough is heard. HEART: Reveals a regular rate and rhythm. The patient has a 2/6 systolic ejection murmur. ABDOMEN: Obese, soft, nontender, without organomegaly. Normal bowel sounds are noted. No rebound o r guarding is noted. GENITOURINARY: Exam is deferred. EXTREMITIES: Reveal left leg continues to be wrapped and wound VAC is still in place. NEUROLOGIC: Patient is oriented to person, place, and time and alert and oriented. IMPRESSION: 1. Osteomyelitis, offer vancomycin per physicians at [facility]. 2. Open wound in the left lower leg present with wound VAC. 3. Diabetes type 2. She is hyperglycemic secondary to her Amaryl, we will stop that again and not r estart it at [facility]. 4. Hypertension. 5. Coronary artery disease. 6. Aortic valve stenosis. 7. Open wound of the lower extremities. 8. History of breast cancer in both breasts. 9. Acute on chronic renal insufficiency. PLAN: 1. Reviewing her medicines, she is on Voltaren 75 t.i.d. We have stopped that. 2. For her low blood pressure, we will encourage the patient to drink some fluids and put JANI hose o n and if needed an abdominal binder. 3. We will not give any extra fluids because of her history of congestive heart failure. 4. Follow her sugars closely. We did give her a shot of glucagon this morning. 5. The patient is to see Dr. Ike Dominguez this morning and get an echocardiogram. 6. Continue supportive care. 7. I have called Dr. Dominguez and advised him about what was going on. 8. I have called Dr. Gibbs and advised him about what is going on and see if there are any further re commendations.
[2017-04-17] MEDS: HYDROmorphone 2 MG TAB PO PRN (17:39)
[2017-04-18] MEDS: Mometasone/Formoterol 60 PUFF AER INH SCH ×2 (05:23→17:32)
[2017-04-18 05:43] LABS: Anion Gap 17 mmol/L (10-20); BUN (Urea Nitrogen) 42 mg/dL (9.8-20.1); Calc. Creatinine Clearance 12 mL/min (70-130); Calcium 8.6 mg/dL (7.8-10.44); Carbon Dioxide 24 mmol/L (23-31); Chloride 104 mmol/L (98-107); Estimated GFR-MDRD 12; Glucose 64 mg/dL (83-110); Potassium 5.6 mmol/L (3.5-5.1); Sodium 139 mmol/L (136-145)
[2017-04-18 05:55] LABS: #Basophils 0.1 thou/uL (0.0-0.2); #Eosinphils 0.2 thou/uL (0.0-0.7); #Lymphocytes 2.8 thou/uL (1.20-3.40); #Monocytes 0.6 thou/uL (0.11-0.59); %Basophils 0.9 % (0.0-1.0); %Eosinophils 1.8 % (0.0-10.0); %Lymphocytes 26.1 % (21.0-51.0); %Monocytes 5.7 % (0.0-10.0); %Neutrophils 65.6 % (42.0-75.0); Hemoglobin 8.4 g/dL (12.0-16.0); Hypochromia MODERATE=16-30 cells (100X) (0-5/hpf); MDiff Complete? YES; Mean Corpuscular HGB CONC 31.6 g/dL (32.0-36.0); Mean Corpuscular Hemoglobin 23.8 pg (27.0-31.0); Mean Corpuscular Volume 75.5 fl (81.0-99.0); Mean Platelet Volume 9.2 fL (7.4-10.4); Microcytosis MODERATE=15-30 cells (100X) (0-5/hpf); Ovalocytes SLIGHT = 2-5 cells (100X) (0-1/hpf); PLT Morphology Comment Appears Adequate; Platelet Count 233 thou/uL (130-400); Poikilocytosis SLIGHT = 6-15 cells (100X) (0-5/hpf); RBC Distribution Width 17.2 % (11.5-14.5); Red Blood Cell (RBC) Count 3.53 mill/uL (4.20-5.40); White Blood Cell (WBC) Count 10.6 thou/uL (4.8-10.8)
[2017-04-18] MEDS: Furosemide 20 MG TAB PO SCH ×2 (08:06→10:12)
[2017-04-18] MEDS: Fish Oil 1,000 MG CAP PO SCH (08:06)
[2017-04-18] MEDS: Metoprolol Tartrate 50 MG TAB PO SCH ×3 (08:06→21:03)
[2017-04-18] MEDS: Potassium Chloride 10 MEQ TAB PO SCH (08:07)
[2017-04-18] MEDS: Spironolactone 25 MG TAB PO SCH ×5 (08:08→21:03)
[2017-04-18] MEDS: Famotidine 20 MG TAB PO SCH ×2 (08:50→21:03)
[2017-04-18] MEDS: Clopidogrel Bisulfate 75 MG TAB PO SCH (08:50)
[2017-04-18] MEDS: Ondansetron ODT 4 MG TAB PO PRN (08:50)
[2017-04-18 14:24] LABS: CRP (Inflammatory) 4.54 mg/dL (= or < 0.5)
[2017-04-18] MEDS: HYDROmorphone 2 MG TAB PO PRN (21:01)
--- NOTE | 2017-04-19 02:39 | PRG ---
DATE OF ADMISSION: 04/13/2017 DATE OF SERVICE: 04/18/2017 HISTORY OF PRESENT ILLNESS: Ms. Benson is a very pleasant 71-year-old white female that fell and frac tured her left ankle. She has surgical correction done by Dr. Underwood, but unfortunately it became infe cted. She had to have all the hardware removed. Postoperatively, she was transferred to [facility] for PT, OT, wound care and wound VAC. Unfortunately, the patient developed hypoglycemia fro m her Amaryl, congestive heart failure and acute renal insufficiency. She was transferred back to [facility] for stabilization transfer back. Her creatinine still remains somewhat elevated between 2s and 3s. Over the weekend, her creatinine increase to 3.84. I did contact Dr. Gibbs, , adjusted her medications. She is not in congestive heart failure, so he recommended continued following her at [facility]. Her creatinine this morning was slightly less at 3.81. She is doing well. She is not having shortne ss of breath and we will continue to follow her very closely. PHYSICAL EXAMINATION: VITAL SIGNS: This morning reveal blood pressure 118/48, pulse 73-84, respirations 16-20, O2 sat 97% to 99%. GENERAL: This is a well-developed, well-nourished, very pleasant white female, in no apparent distre ss at this time. HEENT: Reveals normocephalic, nontraumatic cranium. Pupils are equally round. Extraocular movement s are intact. Nose and throat are slightly dry, but clear. NECK: Supple, without mass, nodes or bruits. LUNGS: Chest clear to auscultation. No rales are heard. No rhonchi or wheezes are heard. The cinthya ent denies cough and we do not here her coughing while in the room. CARDIOVASCULAR: Heart reveals a regular rate and rhythm. The patient does have a 2/6 systolic eject ion murmur. No murmurs, gallops, or rubs were noted. ABDOMEN: Obese, soft, nontender with normal bowel sounds. No rebound or guarding is noted. GENITOURINARY: Deferred. EXTREMITIES: Reveal of late continues with wound VAC in place. No significant swelling is noted. NEUROLOGIC: The patient is oriented to person, place, and time and he is oriented and alert x3. LABORATORY DATA: This morning reveal white count 10,000, hemoglobin 8.4, hematocrit 26.6, which is s lightly lower, which may be volume overload, we will have to watch her closely. Her sodium was 139, potassium 5.6 this morning, potassium was held. Chloride was 104, carbon dioxide 24. The patient's BUN is 42. Creatinine slightly decreased this morning at 3.81, GFR still 12. Gl ucose this morning was still low at 64, but soon came up, before lunch it was 198, before supper it w as 197. IMPRESSION: 1. Osteomyelitis. 2. Open wound, left lower extremity, on wound VAC. 3. Acute on chronic renal insufficiency, minimally improved. 4. Diabetes, type 2 stable and we did discontinue her Amaryl again. 5. Hypertension. 6. Coronary artery disease. 7. Aortic valve stenosis. 8. Open wound of the left lower extremity. 9. History of breast cancer in both breasts. 10. Acute on chronic renal insufficiency. PLAN: 1. Continue to monitor this patient very closely. 2. I did talk with Dr. Iek Dominguez's office, and he will examine her last echocardiogram and get karen k with me. 3. I did discuss with Dr. Gibbs the patient's present progress and we will continue the same course. 4. We will not give her any extra fluids because of her significant history of congestive heart fail ure. 5. Follow her sugars closely and continue with insulin as needed. 6. We will stop the Amaryl. 7. Continue supportive care. 8. Continue wound care. 9. Continue physical therapy and occupational therapy.
[2017-04-19 05:54] LABS: Anion Gap 16 mmol/L (10-20); BUN (Urea Nitrogen) 35 mg/dL (9.8-20.1); Calc. Creatinine Clearance 16 mL/min (70-130); Calcium 9.1 mg/dL (7.8-10.44); Carbon Dioxide 24 mmol/L (23-31); Chloride 107 mmol/L (98-107); Estimated GFR-MDRD 15; Glucose 93 mg/dL (83-110); Potassium 5.9 mmol/L (3.5-5.1); Sodium 141 mmol/L (136-145)
[2017-04-19] MEDS: Mometasone/Formoterol 60 PUFF AER INH SCH ×2 (06:04→18:20)
[2017-04-19] MEDS: Metoprolol Tartrate 50 MG TAB PO SCH ×3 (09:58→20:41)
[2017-04-19] MEDS: Fish Oil 1,000 MG CAP PO SCH (09:58)
[2017-04-19] MEDS: HYDROmorphone 2 MG TAB PO PRN ×3 (09:59→20:39)
[2017-04-19] MEDS: Furosemide 20 MG TAB PO SCH (10:00)
[2017-04-19] MEDS: Spironolactone 25 MG TAB PO SCH ×4 (10:00→20:46)
[2017-04-19] MEDS: Famotidine 20 MG TAB PO SCH ×2 (10:00→20:41)
[2017-04-19] MEDS: Clopidogrel Bisulfate 75 MG TAB PO SCH (10:00)
--- NOTE | 2017-04-19 12:45 | PRG ---
DATE OF SERVICE: 04/19/2017 HISTORY OF PRESENT ILLNESS: Ms. Benson is a pleasant 71-year-old white female that fell and broke her ankle. She has surgical correction by Dr. Underwood, but it became infected. She had to have all the [place] rdware removed and was placed on a wound VAC. She was sent postoperative down to [facility] for physical therapy and occupational therapy. Unfortunately, she developed hyperglycemia from Amar yl, congestive heart failure and acute renal insufficiency, was transferred back to [facility] for stabilization. She was stabilized after about a week and return back to [facility]. Over the weekend, her creatinine increased to 8.34, yesterday it was 8.31 and this morning it is much improved to 2.98. PHYSICAL EXAMINATION: GENERAL: This is a well-developed, well-nourished, very thin white female in no apparent distress at this time. HEENT: Reveals normocephalic, nontraumatic cranium. Pupils equal, round, reactive. Extraocular mov ements intact. Nose and throat are slightly dry. NECK: Supple, without masses, nodes or bruits. CHEST: Clear to auscultation. No rales, rhonchi or wheezes are heard. CARDIOVASCULAR: Reveals a regular rate and rhythm without murmurs, gallops or rubs. ABDOMEN: Soft, nontender, without organomegaly, normal bowel sounds are noted. No rebound or guardi ng is noted. : Deferred. EXTREMITIES: Reveal no clubbing, cyanosis or edema. NEUROLOGIC: Patient is oriented to person, place, and time. IMPRESSION: 1. Osteomyelitis versus osteoarthritis. 2. Open wound, left lower extremity on wound VAC. 3. Acute on chronic renal insufficiency which is much improved at 2.98, creatinine today. 4. Diabetes type 2, which is stable. 5. Hypertension. 6. Coronary artery disease. 7. Aortic valve stenosis. 8. Open wound left lower extremity with wound VAC. 9. History of breast cancer in both breasts. 10. Acute on chronic renal insufficiency. PLAN: 1. Continue to monitor this patient closely. 2. Continue wound VAC. 3. Continue present medications. 4. Continue to monitor the patient's sugars closely since she is on Amaryl. 5. Supportive care. 6. Wound care. 7. Physical therapy and occupational therapy.
[2017-04-20] MEDS: Mometasone/Formoterol 60 PUFF AER INH SCH ×2 (06:12→18:10)
[2017-04-20] MEDS: HYDROmorphone 2 MG TAB PO PRN ×2 (08:47→21:07)
[2017-04-20] MEDS: Metoprolol Tartrate 50 MG TAB PO SCH ×3 (08:47→21:06)
[2017-04-20] MEDS: Fish Oil 1,000 MG CAP PO SCH (08:49)
[2017-04-20] MEDS: Clopidogrel Bisulfate 75 MG TAB PO SCH (08:49)
[2017-04-20] MEDS: Famotidine 20 MG TAB PO SCH ×2 (08:49→21:06)
[2017-04-20] MEDS: Furosemide 20 MG TAB PO SCH (08:49)
[2017-04-20] MEDS: Spironolactone 25 MG TAB PO SCH ×3 (09:10→21:07)
[2017-04-20] MEDS: Ondansetron ODT 4 MG TAB PO PRN (13:22)
--- NOTE | 2017-04-20 20:01 | PRG ---
DATE OF SERVICE: 04/20/2017 SUBJECTIVE: Ms. Benson is a very pleasant 71-year-old white female who fell and broke her ankle. She had surgical correction by Dr. Underwood, but became infected, so he had to remove all the hardware. She was sent to [facility] for wound care, wound VAC, physical therapy and occupational therapy. Unfortunately, she developed some acute respiratory problems with congestive heart failure, renal insufficiency and hypoglycemia. Transferred back to [facility] for a week until she stabilizes and returned back to [facility]. She is actually significantly improved and her creatinine has improved from 3.86 down to 2.98. Her l abs were not done this morning, but they will be repeated tomorrow. She states that she feels better and get stronger every day. The patient is happy and she states she is eating well. She is drinking well. She is not having any problems. She tolerates food she states. She has no complaints and states she feels well. She den ies any shortness of breath. OBJECTIVE: VITAL SIGNS: Revealed blood pressure this morning was 107/50, pulse 68-90, respirations 18-20, O2 sa t 96% to 97% on room air and T-max 97.9. GENERAL: This is a well-developed, well-nourished, thin white female in no apparent distress at this time. HEENT: Reveals normocephalic, nontraumatic cranium. Pupils are equally round and reactive. Extraoc ular movements are intact. Nose and throat are slightly dry. NECK: Supple, without masses, nodes or bruits. CHEST: Clear to auscultation. No rales, rhonchi or wheezes are heard. CARDIOVASCULAR: Reveals a regular rate and rhythm without murmurs, gallops or rubs. ABDOMEN: Soft and nontender, without organomegaly. Normal bowel sounds are noted. No rebound or gu arding is noted. GENITOURINARY: Deferred. EXTREMITIES: Reveal no clubbing, cyanosis or edema. Left ankle still has a wound VAC and is working well and not much drainage noted. NEUROLOGIC: The patient is oriented to person, place and time. She is alert and well oriented. IMPRESSION: 1. Osteomyelitis versus osteoarthritis. 2. Open wound, left lower extremity, on wound VAC. 3. Acute on chronic renal insufficiency with much improved creatinine 2.98 yesterday. 4. Diabetes type 2, which is stable. 5. Hypertension. 6. Coronary artery disease. 7. Aortic valve stenosis. 8. History of breast cancer, in both breasts. 9. Acute on chronic renal insufficiency. PLAN: 1. Labs tomorrow morning to reassess her renal status. 2. Continue wound VAC. 3. Continue to monitor the patient very closely. 4. Monitor the patient's sugars with Accu-Cheks a.c. and at bedtime. 5. Continue present medications. 6. Supportive care. 7. Wound care. 8. Physical therapy and occupational therapy.
[2017-04-21 05:50] LABS: Anion Gap 16 mmol/L (10-20); BUN (Urea Nitrogen) 28 mg/dL (9.8-20.1); Calc. Creatinine Clearance 17 mL/min (70-130); Calcium 9.1 mg/dL (7.8-10.44); Carbon Dioxide 23 mmol/L (23-31); Chloride 106 mmol/L (98-107); Estimated GFR-MDRD 19; Glucose 133 mg/dL (83-110); Potassium 5.6 mmol/L (3.5-5.1); Sodium 139 mmol/L (136-145)
[2017-04-21] MEDS: Mometasone/Formoterol 60 PUFF AER INH SCH ×2 (06:13→17:54)
[2017-04-21] MEDS: Fish Oil 1,000 MG CAP PO SCH (08:16)
[2017-04-21] MEDS: Famotidine 20 MG TAB PO SCH ×2 (08:18→20:32)
[2017-04-21] MEDS: Ondansetron ODT 4 MG TAB PO PRN (08:18)
[2017-04-21] MEDS: Furosemide 20 MG TAB PO SCH (08:18)
[2017-04-21] MEDS: Spironolactone 25 MG TAB PO SCH ×3 (08:18→20:33)
[2017-04-21] MEDS: Clopidogrel Bisulfate 75 MG TAB PO SCH (08:18)
[2017-04-21] MEDS: Metoprolol Tartrate 50 MG TAB PO SCH ×3 (08:18→20:33)
[2017-04-21] MEDS: HYDROmorphone 2 MG TAB PO PRN ×3 (10:59→20:32)
--- NOTE | 2017-04-21 16:06 | PRG ---
DATE OF SERVICE: 04/21/2017 DATE OF ADMISSION: 04/13/2017 HISTORY OF PRESENT ILLNESS: Ms. Benson is a very pleasant 71-year-old white female that unfortunately fell and broke her ankle. She had surgical correction done by Dr. Underwood, but unfortunately it became infected. He had removed all the hardware and postoperatively, she was sent to [facility] for wound care, wound VAC, physical therapy and occupational therapy. Unfortunately, at [place], she developed acute respiratory problems with acute congestive heart fa ilure, acute renal insufficiency and hypoglycemia. She was transferred back to [facility] for about a week ago until she was stabilized and return back to [facility] at this time. At this time, she is doing well and has continued to gradually get better. PHYSICAL EXAMINATION: OBJECTIVE: This morning reveal blood pressure 144/58, pulse 72-75, respirations 16-18, O2 sat 96%-97 % on room air, T-max is 98.7. GENERAL: This is a well-developed, well-nourished, very pleasant white female in no apparent distres s at this time. HEENT: Reveals normocephalic, nontraumatic cranium. Pupils are equally round and reactive. Extraoc ular movements are intact. Nose and throat are slightly dry, but clear. NECK: Supple without masses, nodes or bruits. CHEST: Clear to auscultation. No rales are heard. No rhonchi are heard. No wheezes are heard. Th e patient denies any cough at all. She denies any shortness of breath. HEART: Reveals a regular rate and rhythm without murmurs, gallops or rubs. ABDOMEN: Soft, nontender, without organomegaly. Normal bowel sounds are noted in all 4 quadrants. No rebound or guarding is noted. GENITOURINARY: Deferred. EXTREMITIES: Reveal no clubbing, cyanosis or edema. Left ankle still has wound VAC which is working well with not much drainage. NEUROLOGIC: Patient is oriented to person, place and time. She is also alert. I did discuss with physical therapy and her wound is healing well. There is still some malleolus and tendon showing but it is beginning to cover pretty well. The patient does have an appointment with Dr. Underwood next . So, we will keep her here till Liliane rsday and see if she can be weightbearing at that time. IMPRESSION: 1. Osteomyelitis versus osteoarthritis. 2. Open wound, left lower extremity still on wound VAC. 3. Acute on chronic renal insufficiency, much improved with creatinine of 2.52 this morning. 4. Diabetes type 2 with sugars ranging from 127 to 214. 5. Hypertension, which is stable. 6. Coronary artery disease. 7. Aortic valve stenosis. 8. History of breast cancer in both breasts. 9. Acute on chronic renal insufficiency, much improved. 10. Congestive heart failure, stable. PLAN: 1. Continue wound VAC. 2. Continue to monitor the patient's diabetes with Accu-Cheks a.c. and at bedtime. 3. Continue stress ulcer prophylaxis. 4. Continue deep venous thrombosis prophylaxis. 5. Continue decubitus precautions. 6. Continue physical therapy and occupational therapy. 7. Continue wound care with wound VAC.
[2017-04-22] MEDS ORDERED: Sodium Chloride 0.9% 20 ML ONE (04:27)
[2017-04-22] MEDS: Mometasone/Formoterol 60 PUFF AER INH SCH ×2 (05:19→18:01)
[2017-04-22 05:22] LABS: #Basophils 0.1 thou/uL (0.0-0.2); #Eosinphils 0.2 thou/uL (0.0-0.7); #Lymphocytes 2.5 thou/uL (1.20-3.40); #Monocytes 0.6 thou/uL (0.11-0.59); #Neutrophils 3.1 thou/uL (1.40-6.50); %Basophils 1.2 % (0.0-1.0); %Eosinophils 3.4 % (0.0-10.0); %Lymphocytes 38.7 % (21.0-51.0); %Monocytes 8.6 % (0.0-10.0); %Neutrophils 48.1 % (42.0-75.0); Hemoglobin 8.9 g/dL (12.0-16.0); Hypochromia MODERATE=16-30 cells (100X) (0-5/hpf); MDiff Complete? YES; Mean Corpuscular HGB CONC 30.4 g/dL (32.0-36.0); Mean Corpuscular Hemoglobin 23.4 pg (27.0-31.0); Mean Platelet Volume 8.8 fL (7.4-10.4); Microcytosis MODERATE=15-30 cells (100X) (0-5/hpf); Ovalocytes SLIGHT = 2-5 cells (100X) (0-1/hpf); PLT Morphology Comment Appears Adequate; Platelet Count 192 thou/uL (130-400); Poikilocytosis SLIGHT = 6-15 cells (100X) (0-5/hpf); Red Blood Cell (RBC) Count 3.79 mill/uL (4.20-5.40); Target Cells SLIGHT = 2-5 cells (100X) (0-1/hpf); White Blood Cell (WBC) Count 6.5 thou/uL (4.8-10.8)
[2017-04-22 05:32] LABS: Anion Gap 15 mmol/L (10-20); BUN (Urea Nitrogen) 29 mg/dL (9.8-20.1); Calc. Creatinine Clearance 18 mL/min (70-130); Calcium 8.9 mg/dL (7.8-10.44); Carbon Dioxide 23 mmol/L (23-31); Chloride 105 mmol/L (98-107); Estimated GFR-MDRD 21; Glucose 152 mg/dL (83-110); Sodium 138 mmol/L (136-145)
--- NOTE | 2017-04-22 09:40 | PRG ---
DATE OF SERVICE: 04/22/2017 DATE OF ADMISSION: 04/13/2017 HISTORY OF PRESENT ILLNESS: Ms. Benson is a well-developed, well-nourished 71-year-old white female t hat fell and broke her ankle. She had surgical correction, which unfortunately became infected. She had hardware removed and postoperatively, she was sent to [facility] for wound care, wound VAC, physical therapy and occupational therapy. Patient did develop acute respiratory failure with acute congestive heart failure, acute renal insuff iciency, and acute hypoglycemia. She was managed basically septic and transferred to [facility] where she remained weak and was stabilized. She eventually was transferred back. She continues to have some chronic renal insufficiency, but the patient actually is doing very well. SUBJECTIVE: The patient states she feels well this morning. She is taking her medications. She is eating fairly well and has no complaints. PHYSICAL EXAMINATION: VITAL SIGNS: This morning reveals blood pressure 134/59, pulse 71, respirations 18, O2 saturation 98 % on room air, temperature max 98.2. GENERAL: This is a well-developed, well-nourished, very pleasant white female in no apparent distres s at this time. HEENT: Reveals normocephalic and nontraumatic cranium. Pupils are equally round and reactive. Extr aocular movements are intact. Nose and throat are slightly dry. NECK: Supple, without masses, nodes or bruits. CHEST: Clear to auscultation. No rales, rhonchi or wheezes are heard. HEART: Reveals a regular rate and rhythm without murmurs, gallops or rubs. ABDOMEN: Soft and nontender, without organomegaly, normal bowel sounds are noted. No rebound or gua rding is noted. GENITOURINARY: Deferred. EXTREMITIES: Reveal no clubbing, cyanosis or edema. Left ankle has still wound VAC which is working well. NEUROLOGIC: Patient is oriented to person, place, time, and she is significantly alert. ASSESSMENT: 1. Osteomyelitis versus osteoarthritis. 2. Open wound of left lower extremity, still on wound VAC. 3. Acute on chronic renal insufficiency, much improved with creatinine of 2.2 this morning. 4. Diabetes type 2. Sugars are fairly stable. 5. Hypertension. 6. Coronary artery disease. 7. Aortic valve stenosis. 8. History of breast cancer in both breasts. 9. Acute on chronic renal insufficiency, much improved. 10. Congestive heart failure, stable. PLAN: 1. Continue wound VAC. 2. Continue present meds. 3. Continue to monitor the patient's diabetes with Accu-Cheks a.c. and at bedtime. 4. Stress ulcer prophylaxis. 5. DVT prophylaxis. 6. Decubitus precautions. 7. Physical therapy and occupational therapy. 8. Wound care and wound VAC. 9. Appointment with Dr. Underwood next , and then we will reassess and see what other therapy she will need if she is still nonweightbearing or if she is weightbearing.
[2017-04-22] MEDS: Metoprolol Tartrate 50 MG TAB PO SCH ×3 (09:48→21:27)
[2017-04-22] MEDS: Famotidine 20 MG TAB PO SCH ×2 (09:48→21:27)
[2017-04-22] MEDS: Spironolactone 25 MG TAB PO SCH ×3 (09:48→21:27)
[2017-04-22] MEDS: Fish Oil 1,000 MG CAP PO SCH (09:49)
[2017-04-22] MEDS: Ondansetron ODT 4 MG TAB PO PRN ×2 (09:49→15:15)
[2017-04-22] MEDS: Clopidogrel Bisulfate 75 MG TAB PO SCH (09:49)
[2017-04-22] MEDS: HYDROmorphone 2 MG TAB PO PRN ×3 (09:49→21:27)
[2017-04-22] MEDS: Furosemide 20 MG TAB PO SCH (09:49)
[2017-04-23] MEDS: Mometasone/Formoterol 60 PUFF AER INH SCH ×2 (06:22→19:01)
--- NOTE | 2017-04-23 08:13 | PRG ---
DATE OF SERVICE: 04/23/2017 DATE OF ADMISSION: 04/13/2017 HISTORY OF PRESENT ILLNESS: Ms. Benson is a 71-year-old white female fell and broke her ankle. She h ad surgical correction, which unfortunately became infected. She had the hardware removed and postop eratively, she was sent to [facility] with the wound VAC for wound care, physical the rapy and occupational therapy. SUBJECTIVE: The patient states she has been nauseated. She states she does not want to eat much as she does eat and wants to come back up. I talked with the nurses yesterday and said she did keep domenico n in soup and juice yesterday. She also eats and then lays flat down. I did make recommendation to try to keep her up after eating at least 30 degrees, but also that most likely her nausea is coming from her Dilaudid which she takes p.r.n. but usually 3 times a day. PHYSICAL EXAMINATION: VITAL SIGNS: Reveal blood pressure last night was 137/61, pulse 67-71, respirations 18, O2 saturatio n 98%-99% on room air, T-max 98.3. GENERAL: This is a well-developed, well-nourished, thin white female in no apparent distress at this time. She has concerns on her skin right over the neck, right above her incision. She feels which feels li ke a stitch from her CABG. I told her that we will continue to watch it, but that is not anything to worry about most likely it is stainless steel sutures. HEENT: Reveals normocephalic, nontraumatic cranium. Pupils are equally round and reactive. Extraoc ular movements are intact. Nose and throat are dry. NECK: Supple, without masses, nodes or bruits. CHEST: Clear to auscultation. No rales, no rhonchi, no wheezes are heard. HEART: Reveals a regular rate and rhythm without murmurs, gallops or rubs. ABDOMEN: Soft, nontender, without organomegaly, normal bowel sounds are noted. No rebound or guardi ng is noted. : Deferred. EXTREMITIES: Reveal no clubbing, cyanosis or edema. Left ankle still has a wound VAC which is looki ng well. NEUROLOGIC: Patient is oriented to person, place, and time. LABORATORY DATA: No labs were done today. We will do labs tomorrow. ASSESSMENT: 1. Osteomyelitis versus osteoarthritis. 2. Open wound of left lower extremity still on wound VAC. 3. Acute on chronic renal insufficiency, much improved with creatinine not done today. We will repe at labs tomorrow. 4. Diabetes type 2. Sugars are fairly stable. 5. Hypertension. 6. Coronary artery disease. 7. Aortic valve stenosis. 8. History of breast cancer in both breasts. 9. Acute on chronic renal insufficiency, much improved. 10. Congestive heart failure, stable. PLAN: 1. We will continue wound VAC. 2. Continue present meds. 3. Continue to monitor the patient's diabetes, Accu-Cheks a.c. and at bedtime. 4. Decubitus precautions. 5. Stress ulcer prophylaxis. 6. DVT prophylaxis. 7. Physical therapy and occupational therapy. 8. Wound VAC and wound care. 9. Appointment with Dr. Underwood next . 10. Keep the patient out of bed as much as possible. 11. Encourage the patient not to take so much Dilaudid, so her nausea improves. 12. Lab tomorrow morning.
[2017-04-23] MEDS: Metoprolol Tartrate 50 MG TAB PO SCH ×3 (08:52→21:14)
[2017-04-23] MEDS: Famotidine 20 MG TAB PO SCH ×2 (08:52→21:14)
[2017-04-23] MEDS: Fish Oil 1,000 MG CAP PO SCH (08:52)
[2017-04-23] MEDS: Clopidogrel Bisulfate 75 MG TAB PO SCH (08:53)
[2017-04-23] MEDS: Spironolactone 25 MG TAB PO SCH ×3 (08:53→21:15)
[2017-04-23] MEDS: Furosemide 20 MG TAB PO SCH (08:53)
[2017-04-23] MEDS: HYDROmorphone 2 MG TAB PO PRN ×3 (08:56→21:14)
[2017-04-23] MEDS: HumaLOG 300 UNITS/3 ML VIAL SC PRN (12:50)
[2017-04-23] MEDS ORDERED: Calcium Gluc 4.6 MEQ/10 ML (100 MG/ML) ONE (21:45)
[2017-04-24] MEDS: HYDROmorphone 2 MG TAB PO PRN ×2 (01:49→16:07)
[2017-04-24] MEDS ORDERED: Sodium Chloride 0.9% 10 ML ONE (05:07)
[2017-04-24 05:33] LABS: #Basophils 0.1 thou/uL (0.0-0.2); #Eosinphils 0.2 thou/uL (0.0-0.7); #Monocytes 0.7 thou/uL (0.11-0.59); #Neutrophils 3.7 thou/uL (1.40-6.50); %Eosinophils 2.3 % (0.0-10.0); %Lymphocytes 39.9 % (21.0-51.0); %Monocytes 8.7 % (0.0-10.0); %Neutrophils 48.2 % (42.0-75.0); Anisocytosis MODERATE=16-30 cells (100X) (0-5/hpf); Hemoglobin 9.4 g/dL (12.0-16.0); Hypochromia MODERATE=16-30 cells (100X) (0-5/hpf); MDiff Complete? YES; Mean Corpuscular HGB CONC 30.7 g/dL (32.0-36.0); Mean Corpuscular Hemoglobin 23.6 pg (27.0-31.0); Mean Corpuscular Volume 76.8 fl (81.0-99.0); Mean Platelet Volume 9.3 fL (7.4-10.4); Microcytosis MODERATE=15-30 cells (100X) (0-5/hpf); Ovalocytes SLIGHT = 2-5 cells (100X) (0-1/hpf); PLT Morphology Comment Appears Adequate; Platelet Count 212 thou/uL (130-400); Poikilocytosis MODERATE=16-30 cells (100X) (0-5/hpf); RBC Distribution Width 17.9 % (11.5-14.5); Red Blood Cell (RBC) Count 3.98 mill/uL (4.20-5.40); Target Cells SLIGHT = 2-5 cells (100X) (0-1/hpf); White Blood Cell (WBC) Count 7.6 thou/uL (4.8-10.8)
[2017-04-24] MEDS: Mometasone/Formoterol 60 PUFF AER INH SCH ×2 (05:42→19:20)
[2017-04-24 05:46] LABS: ALT (SGPT) 25 U/L (8-55); AST (SGOT) 24 U/L (5-34); Albumin 3.6 g/dL (3.4-4.8); Alkaline Phosphatase 114 U/L (40-150); Anion Gap 16 mmol/L (10-20); BUN (Urea Nitrogen) 27 mg/dL (9.8-20.1); Bilirubin, Total 0.4 mg/dL (0.2-1.2); Calc. Creatinine Clearance 21 mL/min (70-130); Calcium 9.1 mg/dL (7.8-10.44); Carbon Dioxide 25 mmol/L (23-31); Chloride 101 mmol/L (98-107); Estimated GFR-MDRD 24; Glucose 155 mg/dL (83-110); Potassium 4.6 mmol/L (3.5-5.1); Protein, Total 6.6 g/dL (6.0-8.3); Sodium 137 mmol/L (136-145)
[2017-04-24] MEDS: Metoprolol Tartrate 50 MG TAB PO SCH ×3 (08:10→21:11)
[2017-04-24] MEDS: Spironolactone 25 MG TAB PO SCH ×3 (08:11→21:11)
[2017-04-24] MEDS: Famotidine 20 MG TAB PO SCH ×2 (08:11→21:11)
[2017-04-24] MEDS: Furosemide 20 MG TAB PO SCH (08:11)
[2017-04-24] MEDS: Clopidogrel Bisulfate 75 MG TAB PO SCH (08:11)
[2017-04-24] MEDS: Fish Oil 1,000 MG CAP PO SCH (09:40)
[2017-04-24 12:51] LABS: CRP (Inflammatory) 0.87 mg/dL (= or < 0.5)
--- NOTE | 2017-04-24 21:49 | PRG ---
DATE OF ADMISSION: 04/13/2017 DATE OF SERVICE: 04/24/2017 HISTORY OF PRESENT ILLNESS: Ms. Benson is a very pleasant 71-year-old white female who fell and broke her ankle. She had this surgically corrected and unfortunately became infected. The hardware had t o be removed and postoperatively she was sent to [facility] with wound VAC for wound care, physical therapy and occupational therapy. SUBJECTIVE: The patient states she still has some nausea, but seems to be a little bit better. She really has no complaints today. I did suggest to her that continue to stay up at least 30 degrees an ytime she eats. Also suggested a diet. Nausea is most likely coming from her Dilaudid. OBJECTIVE: VITAL SIGNS: Today reveal blood pressure this morning 108/53, pulse 66-83, respirations 17-20, O2 sa t 98-99% on room air. T-max is 98.0. GENERAL: This is a well-developed, well-nourished, very pleasant white female in no apparent distres s at this time. HEENT: Reveals normocephalic, nontraumatic cranium. Pupils are equally round and reactive. Extraoc ular movements intact. Nose and throat are slightly dry. NECK: Supple, without masses, nodes or bruits. LUNGS: Chest is clear to auscultation. No rales, rhonchi or wheezes are heard. CARDIOVASCULAR: Reveals a regular rate and rhythm without murmurs, gallops or rubs. ABDOMEN: Obese, soft, and nontender. No organomegaly is felt. Normal bowel sounds are heard in all 4 quadrants. No rebound or guarding is noted. GENITOURINARY: Deferred. EXTREMITIES: Reveal still continued weakness. No clubbing, cyanosis or edema. The patient still austin s a wound VAC and is nonweightbearing on that leg. NEUROLOGIC: Patient is oriented to person, place, and time. LABORATORY: Today revealed white count 7000 with hemoglobin 9.4, hematocrit 30.6, platelet count 212 ,000. Sed rate is down to 63. Electrolytes reveal sodium 137, potassium 4.6, chloride 101, carbon dioxide 25 with a BUN 27, creatin ine 2.0, which is much improved. Sugars are remaining below 200. BNP is 542, which is improved. C- reactive protein is 0.87. Previous C-reactive protein was 4.54. IMPRESSION: 1. Osteomyelitis versus osteoarthritis. 2. Wound of left lower extremity, still on wound VAC, much improved. 3. Acute on chronic renal insufficiency, much improved with creatinine 2.00. 4. Diabetes type 2. Sugars are less than 200. 5. Hypertension. 6. Coronary artery disease. 7. Aortic valve stenosis 8. History of breast cancer in both breasts. 9. Acute on chronic renal insufficiency, much improved. 10. Congestive heart failure, stable. PLAN: 1. Continue wound VAC. 2. Continue present medications. 3. Continue patient's diabetic evaluation with Accu-Cheks a.c. and at bedtime. 4. Decubitus precautions. 5. Stress ulcer prophylaxis. 6. Deep venous thrombosis prophylaxis. 7. Physical therapy and occupational therapy. 8. Wound VAC for wound care. 9. Follow up with Dr. Underwood again next . 10. Keep patient out of bed as much as possible. 11. Encouraged the patient to not to take so much Dilaudid, so her nausea improves. 12. Labs p.r.n.
[2017-04-25] MEDS: Mometasone/Formoterol 60 PUFF AER INH SCH ×2 (06:03→17:45)
[2017-04-25] MEDS: HumaLOG 300 UNITS/3 ML VIAL SC PRN ×2 (06:20→11:41)
[2017-04-25] MEDS: Famotidine 20 MG TAB PO SCH ×2 (08:51→20:32)
[2017-04-25] MEDS: Clopidogrel Bisulfate 75 MG TAB PO SCH (08:51)
[2017-04-25] MEDS: Fish Oil 1,000 MG CAP PO SCH (08:52)
[2017-04-25] MEDS: Metoprolol Tartrate 50 MG TAB PO SCH ×3 (08:52→20:32)
[2017-04-25] MEDS: Spironolactone 25 MG TAB PO SCH ×3 (08:52→20:32)
[2017-04-25] MEDS: Furosemide 20 MG TAB PO SCH (08:52)
[2017-04-25] MEDS: Ondansetron ODT 4 MG TAB PO PRN (14:47)
[2017-04-25] MEDS: HYDROmorphone 2 MG TAB PO PRN (17:45)
[2017-04-25] MEDS: diphenhydrAMINE 25 MG CAP PO PRN (20:32)
--- NOTE | 2017-04-25 20:52 | PRG ---
DATE OF SERVICE: 04/25/2017. DATE OF ADMISSION: 04/13/2017. HISTORY OF PRESENT ILLNESS: Ms. Benson is a 71-year-old white female that fell and broke her ankle. Surgically she had it corrected, unfortunately became infected. The patient had the hardware removed and postoperatively she was sent to [facility] for wound VAC, wound care, PT, and OT . SUBJECTIVE: The patient gets very confused at times and sometimes does not know whether it is mornin g or night. Most likely this is her Dilaudid working. When she takes her Dilaudid at night, she get s very combative and swats and gets very rude with the nursing and the nursing staff. She has no rec ollection of that. This morning, she states she has a little nausea. This afternoon, she said she w ould like to have some Benadryl for her rash. The nausea most likely is coming from the Dilaudid. OBJECTIVE: VITAL SIGNS: Blood pressure this morning was 151/60, pulse 65-70, respirations 16-20, O2 sat 96%-100 % on room air, temperature max is 97.4. GENERAL: On physical exam, this is a well-developed, well-nourished, very pleasant white female in n o apparent distress at this time. HEENT: Normocephalic, nontraumatic cranium. Pupils are equally round and reactive. Extraocular mov ements intact. Nose and throat are slightly dry. NECK: Supple without masses, nodes, or bruits. CHEST: Clear to auscultation. No rales, rhonchi, wheezes, or cough is heard. HEART: Regular rate and rhythm without murmurs, gallops, or rubs. ABDOMEN: Soft and nontender without organomegaly. Normal bowel sounds are noted. No rebound or gua rding is noted. GENITOURINARY: Deferred. EXTREMITIES: No clubbing, cyanosis, or edema. The patient's wound VAC continues to heal well. It w ill soon be ready to come off. NEUROLOGIC: The patient is oriented to person, place, but not time. LABORATORY DATA: No labs were done today. We will repeat those tomorrow. ASSESSMENT: 1. Osteomyelitis versus osteitis on the left ankle. 2. Left lower extremity wound with wound VAC on. 3. Acute on chronic renal insufficiency, much improved with a creatinine 2. 4. Diabetes type 2, stable. 5. Hypertension. 6. Coronary artery disease. 7. Aortic valve stenosis. 8. History of breast cancer in both breasts. 9. Congestive heart failure. PLAN: 1. Continue wound VAC. 2. Continue present medications. 3. Continue diabetic evaluation with Accu-Cheks before meals and at bedtime. 4. Decubitus precautions. 5. Stress ulcer prophylaxis. 6. Deep venous thrombosis prophylaxis. 7. Physical therapy and occupational therapy. 8. Wound VAC and wound care. 9. Follow up with Dr. Underwood this . 10. Keep the patient out of bed as much as possible. 11. Encourage the patient not to take much Dilaudid, so her nausea improves. 12. Labs p.r.n.
[2017-04-26] MEDS ORDERED: Sodium Chloride 0.9% 20 ML ONE (05:00)
[2017-04-26] MEDS: Mometasone/Formoterol 60 PUFF AER INH SCH ×2 (05:03→17:30)
[2017-04-26] MEDS: diphenhydrAMINE 25 MG CAP PO PRN ×2 (05:04→20:38)
[2017-04-26 05:28] LABS: #Basophils 0.1 thou/uL (0.0-0.2); #Eosinphils 0.1 thou/uL (0.0-0.7); #Lymphocytes 2.3 thou/uL (1.20-3.40); #Monocytes 0.7 thou/uL (0.11-0.59); #Neutrophils 3.6 thou/uL (1.40-6.50); %Basophils 1.2 % (0.0-1.0); %Eosinophils 2.2 % (0.0-10.0); %Monocytes 9.5 % (0.0-10.0); %Neutrophils 53.1 % (42.0-75.0); Anisocytosis SLIGHT = 6-15 cells (100X) (0-5/hpf); Hemoglobin 9.1 g/dL (12.0-16.0); Hypochromia MODERATE=16-30 cells (100X) (0-5/hpf); MDiff Complete? YES; Mean Corpuscular HGB CONC 31.4 g/dL (32.0-36.0); Mean Corpuscular Volume 76.2 fl (81.0-99.0); Mean Platelet Volume 9.6 fL (7.4-10.4); Microcytosis SLIGHT = 6-15 cells (100X) (0-5/hpf); Ovalocytes SLIGHT = 2-5 cells (100X) (0-1/hpf); Platelet Count 205 thou/uL (130-400); Poikilocytosis SLIGHT = 6-15 cells (100X) (0-5/hpf); Red Blood Cell (RBC) Count 3.79 mill/uL (4.20-5.40); Target Cells SLIGHT = 2-5 cells (100X) (0-1/hpf); White Blood Cell (WBC) Count 6.8 thou/uL (4.8-10.8)
[2017-04-26 05:38] LABS: Anion Gap 15 mmol/L (10-20); BUN (Urea Nitrogen) 28 mg/dL (9.8-20.1); Calc. Creatinine Clearance 25 mL/min (70-130); Calcium 8.9 mg/dL (7.8-10.44); Carbon Dioxide 24 mmol/L (23-31); Chloride 104 mmol/L (98-107); Estimated GFR-MDRD 30; Glucose 177 mg/dL (83-110); Potassium 4.2 mmol/L (3.5-5.1); Sodium 139 mmol/L (136-145)
[2017-04-26] MEDS: Metoprolol Tartrate 50 MG TAB PO SCH ×3 (09:05→20:38)
[2017-04-26] MEDS: Famotidine 20 MG TAB PO SCH ×2 (09:05→20:38)
[2017-04-26] MEDS: Spironolactone 25 MG TAB PO SCH ×3 (09:05→20:38)
[2017-04-26] MEDS: Clopidogrel Bisulfate 75 MG TAB PO SCH (09:05)
[2017-04-26] MEDS: Furosemide 20 MG TAB PO SCH (09:05)
[2017-04-26] MEDS: Fish Oil 1,000 MG CAP PO SCH (09:06)
[2017-04-26] MEDS: HYDROmorphone 2 MG TAB PO PRN (17:31)
--- NOTE | 2017-04-26 21:31 | PRG ---
DATE OF SERVICE: 04/26/2017 DATE OF ADMISSION: 04/13/2017 SUBJECTIVE: Ms. Benson is a 71-year-old very pleasant white female that unfortunately broke her ankle . She had it repaired and became infected. All, however, had to be removed and the patient was even tually stabilized and sent to [facility] for continued physical therapy and occupatio nal therapy. OBJECTIVE: VITAL SIGNS: Reveal blood pressure this morning 144/60, pulse 70-76, respirations 18-20, O2 saturati on 95%-98% on room air, T-max 97.9. GENERAL: This is a well-developed, well-nourished, very pleasant white female in no apparent distres s at this time. HEENT: Reveals normocephalic, nontraumatic cranium. Pupils are equally round and reactive. Extraoc ular movements intact. Nose and throat are slightly dry. NECK: Supple without masses, nodes, or bruits. CHEST: Clear to auscultation. No rales, rhonchi, or wheezes are heard. CARDIOVASCULAR: Reveals a regular rate and rhythm without murmurs, gallops, or rubs. ABDOMEN: Soft, nontender without organomegaly, normal bowel sounds are noted. No rebound or guardin g is noted. : Deferred. EXTREMITIES: Reveal no clubbing, cyanosis, or edema. Patient's wound VAC continues to be in place a nd seems to be healing well. NEUROLOGIC: Patient is oriented to person and place, but not time. LABORATORY DATA: Reveal white count today is 6800 with hemoglobin 9.1, hematocrit 28.9, and a platel et count of 205,000. Electronics reveals sodium 139, potassium 4.2, chloride 104, carbon dioxide 24 with a BUN of 28, crea tinine 1.68, which is much improved. GFR is at 30. Glucose is at 177. BNP is 453. IMPRESSION: 1. Osteomyelitis versus osteitis of the left ankle. 2. Left lower extremity wound with wound VAC. 3. Acute on chronic renal insufficiency, much improved with creatinine 1.68. 4. Diabetes type 2, stable. 5. Hypertension. 6. Coronary artery disease. 7. Aortic valve stenosis. 8. History of breast cancer, both breasts. 9. Congestive heart failure. PLAN: 1. Continue wound VAC therapy. 2. Continue present medications. 3. Continue diabetic monitoring with Accu-Cheks a.c. and at bedtime. 4. Decubitus precautions. 5. Stress ulcer precautions. 6. Deep venous thrombosis prophylaxis. 7. Physical therapy and occupational therapy. 8. Wound VAC and wound care. 9. Follow up with Dr. Underwood tomorrow. 10. Keep the patient out of bed as much as possible. 11. Encourage the patient not to take much Dilaudid, so her nausea will improve. 12. Labs p.r.n.
[2017-04-27] MEDS: HYDROmorphone 2 MG TAB PO PRN ×3 (04:27→15:04)
[2017-04-27] MEDS: diphenhydrAMINE 25 MG CAP PO PRN ×2 (04:28→14:59)
[2017-04-27] MEDS: Mometasone/Formoterol 60 PUFF AER INH SCH ×2 (06:24→18:00)
[2017-04-27] MEDS: HumaLOG 300 UNITS/3 ML VIAL SC PRN ×2 (06:26→16:46)
[2017-04-27] MEDS: Spironolactone 25 MG TAB PO SCH ×3 (08:33→21:17)
[2017-04-27] MEDS: Fish Oil 1,000 MG CAP PO SCH (08:33)
[2017-04-27] MEDS: Famotidine 20 MG TAB PO SCH ×2 (08:34→21:17)
[2017-04-27] MEDS: Metoprolol Tartrate 50 MG TAB PO SCH ×3 (08:34→21:17)
[2017-04-27] MEDS: Clopidogrel Bisulfate 75 MG TAB PO SCH (08:34)
[2017-04-27] MEDS: Furosemide 20 MG TAB PO SCH (08:34)
[2017-04-28] MEDS: diphenhydrAMINE 25 MG CAP PO PRN ×4 (01:20→20:57)
[2017-04-28] MEDS: HYDROmorphone 2 MG TAB PO PRN ×3 (01:20→15:30)
--- NOTE | 2017-04-28 02:30 | PRG ---
DATE OF SERVICE: 04/27/2017 HISTORY OF PRESENT ILLNESS: Ms. Benson is a 71-year-old white female that unfortunately fell and brok e her foot. She had repaired and unfortunately became infected. She went back to [facility], Dr. Underwood and all the hardware was removed. He placed her on a wound VAC and sent her [facility] for continued physical therapy, occupational therapy, and wound care. The patient saw Dr. Underwood about 2 weeks ago and was seen by him again today. After this follow, the patient was very pleased and said that she could have physical therapy, occupa tional therapy most likely be weightbearing as tolerated. She told her that she did not necessarily have to be in the hospital that arrangement could be made so she has home therapy. Unfortunately, the patient became very agitated when she got back to room, said she wanted to leave [facility] immediately. She did not want to wait for home health to be set up. She did not want to wait for a wound VAC to be set up. She did not want to wait for wound care to be set up. She state d that we were holding her hostage and that she had been treated poorly while she was at the hospital . She demanded to be released immediately or she would go AMA. My position is that the patient needs to go home with home health along with a wound VAC as suggested by Dr. Underwood and to get her prescriptions filled. I advised the nurse that if she was that adamant a bout going AMA, she could go with AMA, but I would not refill her medications and she would have to c ontact Dr. Underwood or her primary care physician and I would not see her as followup because she had pre viously requested I be her primary care physician. If she goes AMA, then she is going against all of my recommendations and most likely she will have a much worse outcome with her wound on her left leg . OBJECTIVE: VITAL SIGNS: Blood pressure this morning 128/58, pulse 67-76, respirations 16-18, O2 sat 96% on room air, T-max is 97.8. GENERAL: This is a well-developed, well-nourished, white female that is excited about going to see Selena Underwood. HEENT: Reveals normocephalic, nontraumatic cranium. Pupils are equally round and reactive. Extraoc ular movements intact. Nose and throat are slightly dry. NECK: Supple without masses, nodes, or bruits. CHEST: Clear to auscultation. No rales, rhonchi, or wheezes are heard. CARDIOVASCULAR: Reveals a regular rate and rhythm without murmurs, gallops or rubs. ABDOMEN: Soft and nontender without organomegaly. Normal bowel sounds are noted. No rebound or gua rding is noted. : Deferred. EXTREMITIES: Reveal no clubbing, cyanosis or edema. The patient's wound VAC continues to be in plac e and seems to be healing well. NEUROLOGIC: The patient is oriented to person, place, but not time. The patient's asked me if she may have dementia this morning because at times, especially whe n she takes her Dilaudid, she is irrational and tends to not say true things. IMPRESSION: 1. Wound which is much improved. 2. Dr. Underwood feels that the patient can be discharged home, so we will work on that with home health and get a wound VAC set up for outpatient. 3. Acute on chronic renal insufficiency, much improved with a creatinine, last creatinine 1.68. 4. Diabetes type 2. 5. Hypertension. 6. Coronary artery disease. 7. Aortic valve stenosis. 8. History of breast cancer in both breasts. 9. Congestive heart failure. 10. Noncompliance on the patient's part for wanting to go AMA but also with the nurses report to me that at times she has been refusing her medications and refusing different things and has been very r ude and disrespectful to the nurses. PLAN: 1. We will continue to try to set up for wound VAC therapy as outpatient. 2. Continue to get her home health company that will take care of her wound VAC. 3. Continue at this time diabetic monitoring. 4. Decubitus precautions. 5. Stress ulcer precautions. 6. DVT and thrombosis prophylaxis. 7. Physical therapy and occupational therapy. 8. Wound care and wound VAC. 9. Follow up with Dr. Underwood, per his recommendations. 10. Keep the patient out of bed as much as possible. 11. Weightbearing as tolerated per Dr. Underwood. 12. The patient needs to be off Dilaudid and weaned over to tramadol. 13. Labs p.r.n. 14. I am not interested in being this patient's primary care physician if this patient is going to b e noncompliant.
[2017-04-28] MEDS: Mometasone/Formoterol 60 PUFF AER INH SCH ×2 (06:08→17:40)
[2017-04-28] MEDS: HumaLOG 300 UNITS/3 ML VIAL SC PRN ×2 (06:09→12:19)
[2017-04-28] MEDS: Clopidogrel Bisulfate 75 MG TAB PO SCH (07:56)
[2017-04-28] MEDS: Fish Oil 1,000 MG CAP PO SCH (07:56)
[2017-04-28] MEDS: Furosemide 20 MG TAB PO SCH (07:57)
[2017-04-28] MEDS: Famotidine 20 MG TAB PO SCH ×2 (07:57→20:58)
[2017-04-28] MEDS: Metoprolol Tartrate 50 MG TAB PO SCH ×3 (07:59→20:57)
[2017-04-28] MEDS: Spironolactone 25 MG TAB PO SCH ×3 (07:59→20:58)
[2017-04-28] MEDS ORDERED: traMADol HCl 50 MG TAB PO PRN ×2 (20:16→20:17)
--- NOTE | 2017-04-28 21:59 | PRG ---
DATE OF ADMISSION: 04/13/2017 DATE OF SERVICE: 04/28/2017 SUBJECTIVE: Ms. Benson is a 71-year-old white female that fell at home and broke her left ankle. She had repaired and unfortunately it became infected. She went back to [facility] where Dr. Underwood to get out all the hardware and placed her on a wound VAC. Sent her to [facility] for PT and OT, and wound care. He saw her yesterday and he recommended that she most likely go home with weightbearing as tolerated. She came back to [facility] where she demanded to be discharged, although she does no t have home health set up. She does not have her wound VAC set up, etc. Dr. Underwood contacted [facility] and we had the paperwork in for [facility] wound [facility], but it will n ot be delivered until Monday, so therefore, the patient must stay here until Monday. Unfortunately, the patient is very belligerent and rude to the nurses, hollering and screaming and cu rsing at them. Although, when I walk in the room, she is very pleasant. She throws the nurses out, is very noncompliant with her bed alarm and noncompliant with staying in bed and waiting for the nurs e to come help to go to the bathroom. She just gets up and then when the nurses coming to check on h er, she curses at them. OBJECTIVE: VITAL SIGNS: Reveal blood pressure this morning 129/60, pulse 74-81, respirations 18-20, O2 sat 96% to 97% on room air, T-max 98.6. GENERAL: This is a well-developed, well-nourished, small built white female, in no apparent distress at this time. HEENT: Reveals normocephalic, nontraumatic cranium. Pupils are equally round and reactive. Extraoc ular movements are intact. Nose and throat are slightly dry. NECK: Supple, without masses, nodes or bruits. CHEST: Clear to auscultation. No rales, rhonchi or wheezes are heard. CARDIOVASCULAR: Reveals a regular rate and rhythm without murmurs, gallops or rubs. ABDOMEN: Soft, nontender, without organomegaly, normal bowel sounds are noted. No rebound or guardi ng is noted. : Deferred. EXTREMITIES: Reveal left lateral ankle still with wound VAC on. NEUROLOGIC: The patient moves around the bed well. She tries to hop out of bed, but the nurses trie d a container because she is not supposed to be weightbearing much. IMPRESSION: 1. Left lateral wound, much improved. 2. Acute on chronic renal insufficiency. 3. Diabetes, type 2. 4. Hypertension. 5. Coronary artery disease. 6. Aortic valve stenosis. 7. History of breast cancer, both breasts. 8. Congestive heart failure. 9. Noncompliance with the patient not following instructions from the nurses and being very rude and cursing the nurses. She refuses medication at times and is very disrespectful. Yesterday, the cinthya ent threatened to go AMA. PLAN: 1. [facility] will be following the patient. 2. Wound VAC paperwork has been done, has been sent. 3. Continue to monitor her diabetes with Accu-Cheks a.c. and at bedtime. 4. Decubitus precautions. 5. Stress ulcer precautions. 6. Deep venous thrombosis prophylaxis. 7. PT and OT. 8. Wound care, wound VAC. 9. Follow up with Dr. Underwood. 10. Weightbearing as tolerated per Dr. Underwood. 11. We will wean the patient off the Dilaudid and start to wean over to tramadol. 12. The patient states she is not allergic to tramadol. 13. 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
[2017-04-29] MEDS: Mometasone/Formoterol 60 PUFF AER INH SCH ×2 (06:04→18:48)
[2017-04-29] MEDS: Spironolactone 25 MG TAB PO SCH ×3 (08:41→20:18)
[2017-04-29] MEDS: Famotidine 20 MG TAB PO SCH ×2 (08:42→20:18)
[2017-04-29] MEDS: Furosemide 20 MG TAB PO SCH (08:42)
[2017-04-29] MEDS: Fish Oil 1,000 MG CAP PO SCH (08:42)
[2017-04-29] MEDS: Clopidogrel Bisulfate 75 MG TAB PO SCH (08:42)
[2017-04-29] MEDS: Metoprolol Tartrate 50 MG TAB PO SCH ×3 (08:42→20:18)
[2017-04-29] MEDS: diphenhydrAMINE 25 MG CAP PO PRN ×2 (13:51→20:18)
--- NOTE | 2017-04-29 15:32 | PRG ---
DATE OF SERVICE: 04/29/2017 SUBJECTIVE: Ms. Benson is doing well. Denies any complaints, resting comfortably, tolerating her the rapy. Discussed with nursing and no concerns. OBJECTIVE: VITAL SIGNS: She is afebrile, heart rate 68, respirations 16, oxygen saturation 97% on room air, blo od pressure 127/60. CARDIOVASCULAR SYSTEM: S1 and S2 plus. RESPIRATORY SYSTEM: Normal vesicular breath sounds. ABDOMEN: Soft, nontender, bowel sounds heard in all quadrants. EXTREMITIES: Without cyanosis or clubbing. CENTRAL NERVOUS SYSTEM: Improving deconditioning. LABORATORY VALUES: Blood sugars are 165, 162, 108, 155, 185, and 178. IMPRESSION: 1. Diabetes mellitus, type 2, well controlled. 2. Hypertension, well controlled. 3. Coronary artery disease without angina. 4. History of noncompliance. 5. Healing leg wound, on wound VAC. 6. Stable chronic systolic and diastolic congestive heart failure. PLAN: 1. Continue current medications. 2. Nutritional support. 3. Wound VAC. 4. DVT and stress ulcer prophylaxis. 5. Decubitus precautions. 6. Routine laboratory values. 7. Discussed with the patient in detail and all questions answered.
[2017-04-29] MEDS ORDERED: traMADol HCl 50 MG TAB PO PRN ×3 (17:58→18:41)
[2017-04-29] MEDS: traMADol HCl 50 MG TAB PO PRN (18:47)
[2017-04-30] MEDS: Famotidine 20 MG TAB PO SCH ×2 (08:21→21:08)
[2017-04-30] MEDS: Spironolactone 25 MG TAB PO SCH ×3 (08:21→21:08)
[2017-04-30] MEDS: Metoprolol Tartrate 50 MG TAB PO SCH ×3 (08:21→21:08)
[2017-04-30] MEDS: Clopidogrel Bisulfate 75 MG TAB PO SCH (08:21)
[2017-04-30] MEDS: Furosemide 20 MG TAB PO SCH (08:21)
[2017-04-30] MEDS: traMADol HCl 50 MG TAB PO PRN (08:22)
[2017-04-30] MEDS: Fish Oil 1,000 MG CAP PO SCH (08:30)
--- NOTE | 2017-04-30 13:09 | PRG ---
DATE OF SERVICE: 04/30/2017 SUBJECTIVE: Ms. Benson is doing well. Denies any complaints, resting comfortably, tolerating her med ications. Apparently, she had an episode of agitation and combativeness last night, but that resolve d. She has been taken off her Dilaudid by Dr. Sanchez in anticipation of her being discharged this m orning. She denies any concerns or questions. OBJECTIVE: VITAL SIGNS: She is afebrile, heart rate 78, respirations 20, oxygen saturation 99% on room air, blo od pressure 118/58. CARDIOVASCULAR SYSTEM: S1, S2 plus. RESPIRATORY SYSTEM: Normal vesicular breath sounds. ABDOMEN: Soft, nontender, bowel sounds heard in all quadrants. EXTREMITIES: Without cyanosis or clubbing. Wound VAC in place. CENTRAL NERVOUS SYSTEM: Improving deconditioning. LABORATORY DATA: Blood sugars are 185, 178, 252, and 169. IMPRESSION: 1. Episodes of behavioral issues. Again reinforced that any rude yelling against the nurses is not appropriate. 2. Diabetes mellitus, type 2, well controlled. 3. Hypertension. 4. Coronary artery disease without angina. 5. Healing leg wound, on wound VAC. 6. Stable chronic systolic and diastolic congestive heart failure. PLAN: 1. Continue current medications. 2. An 1800-calorie heart healthy ADA diet. 3. DVT and stress ulcer prophylaxis. 4. Wound VAC care. 5. Nutritional support. 6. Physical therapy. 7. Discharge planning. 8. See Dr. Brady Sanchez back tonight.
[2017-04-30] MEDS: Mometasone/Formoterol 60 PUFF AER INH SCH ×2 (18:23→20:37)
[2017-05-01] MEDS: Mometasone/Formoterol 60 PUFF AER INH SCH ×2 (05:28→17:32)
[2017-05-01] MEDS: HumaLOG 300 UNITS/3 ML VIAL SC PRN ×2 (05:34→11:47)
[2017-05-01] MEDS: Fish Oil 1,000 MG CAP PO SCH (08:41)
[2017-05-01] MEDS: Famotidine 20 MG TAB PO SCH ×2 (08:41→20:49)
[2017-05-01] MEDS: Spironolactone 25 MG TAB PO SCH ×3 (08:41→20:49)
[2017-05-01] MEDS: Furosemide 20 MG TAB PO SCH (08:41)
[2017-05-01] MEDS: Clopidogrel Bisulfate 75 MG TAB PO SCH (08:41)
[2017-05-01] MEDS: Metoprolol Tartrate 50 MG TAB PO SCH ×3 (08:41→20:50)
[2017-05-01] MEDS: traMADol HCl 50 MG TAB PO PRN ×3 (08:48→20:50)
[2017-05-01] MEDS: diphenhydrAMINE 25 MG CAP PO PRN (18:19)
--- NOTE | 2017-05-01 21:04 | PRG ---
DATE OF SERVICE: 05/01/2017 HISTORY OF PRESENT ILLNESS: Ms. Benson is a 71-year-old white female that broke her left ankle. She had it repaired, unfortunately became infected. [facility] and placed her on a wound VAC. He send her to [facility] with oral antibiotics. She has actually done very well and has returned back to see Dr. Vince doss a couple times. He now recommends that she do weightbearing as tolerated in home with home health . She is back to the [facility], where she is stable and ready for discharge tomorro w. We are trying to make sure that she has all of her home health aligned up. SUBJECTIVE: The patient states she is doing well, has no complaints. She is anxious about going bairon e tomorrow and really wants to go home soon. OBJECTIVE: Vital signs this morning reveal blood pressure 143/64, pulse 59-61, respirations 18-20, O 2 sat 97%-99% on room air, T-max 98.3. LABORATORY DATA: Laboratory this morning reveals a white count of 6800 with hemoglobin 9.1, hematocr it 28.9, and platelet count of 205,000. Accu-Cheks were good. PHYSICAL EXAMINATION: GENERAL: This is a well-developed, well-nourished, very pleasant white female who is much improved a s far as her sensorium and her behavioral outburst. Since she is off her Dilaudid, she is not nearly as rude and agitated. PHYSICAL EXAMINATION: GENERAL: Reveals a well-developed, well-nourished, white female in no apparent distress at this time . HEENT: Reveals normocephalic, nontraumatic cranium. Pupils equal, round, and reactive. Extraocular movements intact. Nose and throat are slightly dry. NECK: Supple without masses, nodes, or bruits. CHEST: Clear to auscultation. No rales, rhonchi, wheezes, or cough is heard. CARDIOVASCULAR: Reveals a regular rate and rhythm without murmurs, gallops, or rubs. ABDOMEN: Soft and nontender without organomegaly. Normal bowel sounds are noted. No rebound or gua rding is noted. : Deferred. EXTREMITIES: Reveal no clubbing, cyanosis, or edema. Only a wound VAC still on that left foot. IMPRESSION: 1. Left lateral wound on the ankle, much improved. 2. Acute on chronic renal insufficiency. 3. Diabetes type 2. 4. Hypertension. 5. Coronary artery disease. 6. Aortic valve stenosis. 7. History of breast cancer, both breasts. 8. Congestive heart failure. 9. Noncompliance, much improved. PLAN: 1. The patient will be discharged with [facility] to follow the patient. 2. Wound VAC. Paper work has been done, awaiting arrival. 3. Continue to monitor the patient's diabetes with Accu-Cheks before meals and at bedtime. 4. Decubitus precautions. 5. Stress ulcer precautions. 6. Deep venous thrombosis prophylaxis. 7. PT and OT. 8. Wound care and wound VAC care. 9. Follow up with Dr. Underwood. 10. Weightbearing as tolerated per Dr. Underwood. 11. Wean the patient off the Dilaudid, which is done. 12. The patient is on tramadol, but she is not taking. She may not even need a prescription. 13. Discharge most likely tomorrow morning, which is Monday.
[2017-05-02] MEDS: diphenhydrAMINE 25 MG CAP PO PRN (01:19)
[2017-05-02 05:31] VITALS: BMI 22.4
[2017-05-02] MEDS: Mometasone/Formoterol 60 PUFF AER INH SCH (05:34)
[2017-05-02] MEDS: HumaLOG 300 UNITS/3 ML VIAL SC PRN (05:44)
[2017-05-02 07:16] VITALS: BP 102/58; TEMP 97.3
[2017-05-02] MEDS: Famotidine 20 MG TAB PO SCH (09:00)
[2017-05-02] MEDS: Clopidogrel Bisulfate 75 MG TAB PO SCH (09:00)
[2017-05-02] MEDS: Metoprolol Tartrate 50 MG TAB PO SCH (09:01)
[2017-05-02] MEDS: Furosemide 20 MG TAB PO SCH (09:01)
[2017-05-02] MEDS: Spironolactone 25 MG TAB PO SCH (09:01)
[2017-05-02] MEDS: Fish Oil 1,000 MG CAP PO SCH (09:01)
[2017-05-02] MEDS: traMADol HCl 50 MG TAB PO PRN (10:03)
--- NOTE | 2017-05-02 10:30 | DIS ---
DATE OF ADMISSION: 04/13/2017 DATE OF DISCHARGE: 05/02/2017 HOSPITAL COURSE: Ms. Benson is a very pleasant 71-year-old white female that unfortunately fell and b roke her left ankle. She had repaired and it became infected. She went back to [facility] where Dr. Underwood to get all hardware and placed her on a wound VAC. Send her to [facility] with antibiotics. She has actually done very well. She has returned to see Dr. Underwood couple of times and now recommended that she do weightbearing as tolerated or partial weightbearing as tolerated with home health. She is being discharged at this time to continue on her wound VAC. S he will see Dr. Underwood sometime in the next week. DISCHARGE MEDICATIONS: Will include the following; 1. Aspirin 81 mg daily. 2. Plavix 75 mg daily. 3. Metoprolol 50 mg 3 times daily. 4. Spironolactone 25 mg 3 times daily. 5. Vascepa 1 gram 3 times daily. 6. Symbicort p.r.n. 7. Sertraline 50 mg each morning. 8. Lisinopril 10 mg will be on hold until blood pressure comes up. 9. Diclofenac will be on hold until Dr. Underwood okays it. 10. The patient does have mild diabetes. She has been on glimepiride/Amaryl, but that has twice in the hospital and given her hypoglycemic episodes which were difficult to control. We will keep her o ff of that for right now and suggest diet and exercise. 11. Dr. Underwood gave her a prescription for Levaquin 500 mg 1 a day for 20 days, which she is to take w hen she leaves the hospital. I will rewrite that prescription since the family cannot find that. PHYSICAL EXAMINATION: VITAL SIGNS: Today reveal blood pressure is 102/58, pulse 59 to 60, respirations 18, O2 sat 96%-98% on room air, and temperature 98.3. GENERAL: This is a well-developed, well-nourished, very pleasant white female in no apparent distres s at this time. HEENT: Reveals normocephalic, nontraumatic cranium. Pupils are equally round and reactive. Extraoc ular movements are intact. Nose and throat are slightly dry. NECK: Supple, without masses, nodes or bruits. CHEST: Clear to auscultation. No rales, rhonchi or wheezes are heard. HEART: Reveals regular rate and rhythm without murmurs, gallops or rubs. ABDOMEN: Soft and nontender without organomegaly. Normal bowel sounds are noted. No rebound or gua rding is noted. GENITOURINARY: Deferred. EXTREMITIES: Reveal no clubbing, cyanosis or edema. Wound VAC is still on. Presently, we will tomlinson ge it wet to dry. The patient will have wound VAC delivered tomorrow morning. IMPRESSION: 1. Left lateral wound in ankle, much improved. 2. Acute on chronic renal insufficiency. 3. Diabetes type 2. 4. Hypertension. 5. Coronary artery disease. 6. Aortic valve stenosis. 7. History of breast cancer in both breasts. 8. Congestive heart failure. 9. Noncompliance, much improved. 10. The patient will be discharged to home health for wound VAC care. 11. Wound VAC is supposedly to be delivered tomorrow morning and it is confirmed. 12. Accu-Cheks p.r.n. 13. Decubitus precautions. 14. Stress ulcer precautions. 15. Deep venous thrombosis prophylaxis. 16. Physical therapy and occupational therapy. 17. Wound care and back care. 18. Follow up with Dr. Underwood. 19. Weightbearing as tolerated per Dr. Underwood. 20. Wean the patient off of Dilaudid which was done. 21. The patient is on tramadol which she is not taking anymore. She does not need any other prescri ption. 22. Discharged this morning.
== END 2017-05-02 14:00 | disposition home health service (06) | DRG 560 ==
LOC: NAV ACUTE 12:39
PROVIDERS: ADMIT Family Medicine; ATTEND Family Medicine
DX: Z47.89 Encounter for other orthopedic aftercare (principal); I50.42 Chronic combined systolic (congestive) and diastolic (congestive) heart failure; E11.8 Type 2 diabetes mellitus with unspecified complications; I11.0 Hypertensive heart disease with heart failure; M86.9 Osteomyelitis, unspecified; E78.5 Hyperlipidemia, unspecified; I25.10 Atherosclerotic heart disease of native coronary artery without angina pectoris; I35.0 Nonrheumatic aortic (valve) stenosis; Z90.13 Acquired absence of bilateral breasts and nipples; Z95.5 Presence of coronary angioplasty implant and graft; Z79.01 Long term (current) use of anticoagulants; Z79.82 Long term (current) use of aspirin; Z79.891 Long term (current) use of opiate analgesic; Z88.1 Allergy status to other antibiotic agents; Z88.5 Allergy status to narcotic agent; Z88.2 Allergy status to sulfonamides; Z85.3 Personal history of malignant neoplasm of breast; N18.9 Chronic kidney disease, unspecified; Z91.81 History of falling; S91.002A Unspecified open wound, left ankle, initial encounter
CPT/HCPCS: 36415; 36416; 80048; 80053; 81001; 83880; 84134; 85025; 85652; 86140; 97602; A4216; G8978-GP-CL; G8979-GP-CJ; J1610; Q0162